=== PATIENT | male | born 1945 | race Two or more races ===

== ENCOUNTER 2020-11-22 11:31 | Inpatient (IN) | payer OTHER, MEDICAID ==
[~2020-11-22] VITALS: Ht 180.3 cm; Wt 73.4 kg
[2020-11-22 12:33] LABS: Hemoglobin 8.9 g/dL (13.5-17.5)
[2020-11-22 12:34] LABS: Hematocrit 26.7 % (41.0-53.0); Mean Corpuscular Hgb Conc. 33.3 g/dL (32.0-36.0); Mean Corpuscular Volume 93.1 fL (80.0-100.0); Red Blood Cells 2.87 10^6/uL (4.5-5.90); Red Cell Distribution Width 14.4 % (11.8-14.3); White Blood Cell 22.1 10^3/uL (4.4-10.8)
[2020-11-22 12:40] LABS: Basophils % (manual) 0 (0.0-2.0); Metamyelocytes % 0; Myelocytes % 0; Promyelocytes % 0
[2020-11-22 12:48] LABS: Calcium 7.4 mg/dL (8.5-10.1); INR 1.05 (0.9-1.15); Partial Thromboplastin Time 25.7 sec (23.0-31.2)
[2020-11-22 12:53] LABS: BUN/Creatinine Ratio 17.6; Bilirubin, Total 0.4 mg/dL (0.2-1.0); Total Protein 6.1 g/dL (6.4-8.2)
[2020-11-22 14:34] LABS: Band Neutrophils % (manual) 1; Eosinophils % (manual) 1 (0-7); Lymphocytes % (manual) 60 (10.0-50.0); Monocytes % (manual) 4 (0-12); Reactive Lymphocytes 12
[2020-11-22 14:35] LABS: Blast Cells 2
[2020-11-22] MEDS ORDERED: FUROSEMIDE 20 MG/2 ML VIAL IV ONE (14:45)
[2020-11-22] MEDS ORDERED: LACTULOSE 20Gm/30ML SOLN PO PRN (15:00)
[2020-11-22] MEDS ORDERED: DOXYCYCLINE 100MG/250ML 250 ML IV SCH (15:00)
[2020-11-22] MEDS ORDERED: NITROGLYCERIN 0.4 MG SL TAB SL PRN (15:00)
[2020-11-22] MEDS ORDERED: ALBUTEROL SULF 2.5 MG/0.5ML(0.5%) NEB SOLN NEB PRN (15:00)
[2020-11-22] MEDS ORDERED: MORPHINE SULFATE INJECTION 2 MG/ML SYRG IV PRN (15:00)
[2020-11-22] MEDS ORDERED: ALBUTEROL SULF 2.5 MG/0.5ML(0.5%) NEB SOLN NEB SCH (18:00)
[2020-11-22] MEDS ORDERED: IPRATROPIUM BROM 0.5 MG/2.5ML INH SOL NEB SCH (18:00)
[2020-11-22] MEDS ORDERED: DEXTROSE (50%) 50ML SYRG IV PRN (19:30)
[2020-11-22] MEDS ORDERED: INSULIN LISPRO (HUMAN) 100 UNITS/ML ML SC ONE (21:00)
[2020-11-22 22:00] VITALS: BP 140/72
[2020-11-22] MEDS ORDERED: ATORVASTATIN 20 MG TAB PO SCH (22:00)
[2020-11-22] MEDS: ATORVASTATIN 20 MG TAB PO SCH (22:08)
[2020-11-22] MEDS ORDERED: diphenhdrAMINE HCL 25 MG CAP PO ONE (22:15)
[2020-11-22 23:26] VITALS: BP 140/72
[2020-11-23 05:00] VITALS: BP 127/52
[2020-11-23] MEDS: InsuLIN REG 1unit/0.01ml Soln (100units/ml) SC SCH ×4 (06:00→18:17)
[2020-11-23] MEDS: ACCU-CHEK COMFORT CURVE STRIP VI SCH ×4 (06:00→18:17)
[2020-11-23 06:10] LABS: Urine Bacteria NONE SEEN /hpf (None Seen); Urine Blood Negative /uL (Negative); Urine Specific Gravity 1.008 (1.001-1.035); Urine WBC <1 /hpf (0 - 3)
[2020-11-23 08:00] VITALS: BP 153/81
[2020-11-23 08:29] LABS: Red Cell Distribution Width 14.6 % (11.8-14.3)
[2020-11-23] MEDS ORDERED: DIGOXIN (250MCG/ML) 2 ML AMPULE IV ONE (08:30)
[2020-11-23] MEDS ORDERED: METOPROLOL TARTRATE 1MG/1ML-5ML VIAL IV ONE (08:30)
[2020-11-23 08:31] LABS: Hemoglobin 9.8 g/dL (13.5-17.5); Mean Corpuscular Hemoglobin 30.9 pg (28.0-32.0); Mean Corpuscular Hgb Conc. 33.6 g/dL (32.0-36.0); Red Blood Cells 3.16 10^6/uL (4.5-5.90); White Blood Cell 20.3 10^3/uL (4.4-10.8)
[2020-11-23 08:46] LABS: Basophils % (manual) 0 (0.0-2.0); Blast Cells 0; Eosinophils % (manual) 0 (0-7); Metamyelocytes % 0; Myelocytes % 0; Promyelocytes % 0
[2020-11-23 08:48] LABS: % Iron Saturation 15.3 % (20-55)
[2020-11-23 08:54] LABS: BUN/Creatinine Ratio 16.7; Calcium 7.9 mg/dL (8.5-10.1); Potassium 3.3 mmol/L (3.5-5.1)
[2020-11-23 09:11] LABS: Red Cell Distribution Width 14.4 % (11.8-14.3)
[2020-11-23 09:13] LABS: Hematocrit 29.3 % (41.0-53.0); Hemoglobin 9.9 g/dL (13.5-17.5); Mean Corpuscular Hemoglobin 30.6 pg (28.0-32.0); Mean Corpuscular Hgb Conc. 33.7 g/dL (32.0-36.0); Red Blood Cells 3.22 10^6/uL (4.5-5.90); White Blood Cell 16.6 10^3/uL (4.4-10.8)
[2020-11-23 09:16] LABS: Band Neutrophils % (manual) 0; Basophils % (manual) 0 (0.0-2.0); Blast Cells 0; Metamyelocytes % 0; Myelocytes % 0; Promyelocytes % 0; Reactive Lymphocytes 0
[2020-11-23] MEDS ORDERED: POTASSIUM CHL 20 Meq TABLET PO ONE ×3 (09:30→20:00)
[2020-11-23] MEDS ORDERED: EPOETIN ALFA 10000 UNIT/1 ML SC ONE (09:30)
[2020-11-23] MEDS ORDERED: POTASSIUM CHL 20 Meq TABLET PO SCH (10:00)
[2020-11-23] MEDS ORDERED: FUROSEMIDE 40 MG/4 ML VIAL IV SCH (10:00)
[2020-11-23] MEDS ORDERED: ASPirin 81 mg TAB PO SCH (10:00)
[2020-11-23] MEDS ORDERED: NITROGLYCERIN 0.2MG/HR TOPICAL PATCH TD SCH (10:00)
[2020-11-23] MEDS ORDERED: METOPROLOL TARTRATE 25 MG TAB PO ONE (10:30)
[2020-11-23] MEDS: FUROSEMIDE 40 MG/4 ML VIAL IV SCH (11:22)
[2020-11-23] MEDS: ISOSORBIDE MONONITRATE ER 60 MG TAB PO SCH (11:22)
[2020-11-23] MEDS: ASPirin 81 mg TAB PO SCH (11:22)
[2020-11-23] MEDS: ENALAPRIL MALEATE 2.5 MG TAB PO SCH (11:23)
[2020-11-23] MEDS: SODIUM FERR GLUC 62.5MG/5ML 125 MG in SODIUM CHL 0.9% 100 ML IV SCH (12:00)
[2020-11-23 12:42] LABS: Band Neutrophils % (manual) 2; Lymphocytes % (manual) 76 (10.0-50.0); Monocytes % (manual) 5 (0-12); Reactive Lymphocytes 5
[2020-11-23 13:43] LABS: Lymphocytes % (manual) 84 (10.0-50.0)
[2020-11-23 13:44] LABS: Eosinophils % (manual) 2 (0-7); Monocytes % (manual) 2 (0-12)
[2020-11-23] MEDS: Glucerna Carbsteady SHAKE Vanilla 8oz PO SCH (18:17)
[2020-11-23] MEDS: TAMSULOSIN HYDROCHLORIDE 0.4 MG CAP PO SCH (18:17)
[2020-11-23] MEDS: TEMAZEPAM 15 MG CAP PO PRN (21:36)
[2020-11-23] MEDS: ATORVASTATIN 20 MG TAB PO SCH (21:37)
[2020-11-23] MEDS: METOPROLOL TARTRATE 25 MG TAB PO SCH (21:37)
[2020-11-23 22:25] VITALS: BP 158/56
[2020-11-24] MEDS: InsuLIN REG 1unit/0.01ml Soln (100units/ml) SC SCH ×5 (00:14→23:32)
[2020-11-24] MEDS: ACCU-CHEK COMFORT CURVE STRIP VI SCH ×5 (00:17→23:32)
[2020-11-24] MEDS: Glucerna Carbsteady SHAKE Vanilla 8oz PO SCH ×3 (08:00→17:45)
[2020-11-24 09:00] VITALS: BP 151/70
[2020-11-24 09:26] LABS: Mean Corpuscular Hemoglobin 30.4 pg (28.0-32.0)
[2020-11-24 09:28] LABS: Hematocrit 30.3 % (41.0-53.0); Mean Corpuscular Hgb Conc. 33.1 g/dL (32.0-36.0); Mean Corpuscular Volume 91.8 fL (80.0-100.0); Red Blood Cells 3.31 10^6/uL (4.5-5.90); Red Cell Distribution Width 14.1 % (11.8-14.3); White Blood Cell 27.1 10^3/uL (4.4-10.8)
[2020-11-24 09:33] LABS: Basophils % (manual) 0 (0.0-2.0); Blast Cells 0; Eosinophils % (manual) 0 (0-7); Metamyelocytes % 0; Myelocytes % 0; Promyelocytes % 0
[2020-11-24 09:52] VITALS: BP 156/76
[2020-11-24 09:56] LABS: BUN/Creatinine Ratio 15.2; Calcium 8.2 mg/dL (8.5-10.1); Magnesium 2.3 mg/dL (1.6-2.6); Potassium 4.1 mmol/L (3.5-5.1)
[2020-11-24 10:15] VITALS: BP 159/72
[2020-11-24] MEDS ORDERED: IODIXANOL 320MG/ML 100ML BTL IV ONE (10:32)
[2020-11-24] MEDS ORDERED: LIDOCAINE 2%HCL (LOCAL ANESTH.) INJ 20ML MDV ONE (10:32)
[2020-11-24] MEDS ORDERED: ANGIOMAX 250 MG VIAL IV ONE (10:51)
[2020-11-24] MEDS ORDERED: fentaNYL CITRATE 100 MCG/2 ML VL ONE (10:51)
[2020-11-24] MEDS ORDERED: SODIUM CHL 0.9% 0 ML ONE (10:51)
[2020-11-24] MEDS ORDERED: MIDAZOLAM HCL 2MG/2ML 2ml VIAL (1mg/ml) ONE (10:51)
[2020-11-24] MEDS ORDERED: HEPARIN SODIUM (PORCINE) 5000 UNITS/ML 1ML VIAL ONE (10:52)
[2020-11-24] MEDS ORDERED: VERAPAMIL 2.5MG/ML INJ 2ML VIAL IV ONE (10:52)
[2020-11-24] MEDS ORDERED: NITROGLYCERIN 5MG/ML 10ML VIAL IV ONE (10:58)
[2020-11-24] MEDS ORDERED: NITROGLYCERIN 0.4MG/DOSE SPRAY 4.9GM ONE (11:32)
[2020-11-24] MEDS ORDERED: traMADol HCL 50 MG TAB PO PRN (12:00)
[2020-11-24] MEDS ORDERED: DexAMETHasone SOD PHOS 4 MG/1ML SDV INJ IV SCH (13:00)
[2020-11-24 13:04] LABS: Band Neutrophils % (manual) 1; Lymphocytes % (manual) 71 (10.0-50.0); Monocytes % (manual) 3 (0-12); Reactive Lymphocytes 8
[2020-11-24] MEDS: ASPirin 81 mg TAB PO SCH (13:05)
[2020-11-24] MEDS: FUROSEMIDE 40 MG/4 ML VIAL IV SCH (13:05)
[2020-11-24] MEDS: ENALAPRIL MALEATE 2.5 MG TAB PO SCH (13:05)
[2020-11-24] MEDS: ISOSORBIDE MONONITRATE ER 60 MG TAB PO SCH (13:05)
[2020-11-24] MEDS: POTASSIUM CHL 20 Meq TABLET PO SCH (13:06)
[2020-11-24] MEDS: METOPROLOL TARTRATE 25 MG TAB PO SCH ×2 (13:06→21:54)
[2020-11-24] MEDS: SODIUM FERR GLUC 62.5MG/5ML 125 MG in SODIUM CHL 0.9% 100 ML IV SCH (15:06)
[2020-11-24] MEDS: ACETAMINOPHEN 325 MG TAB PO SCH (15:27)
[2020-11-24] MEDS: diphenhdrAMINE HCL 50 MG/1 ML VL IV SCH (15:27)
[2020-11-24 16:00] VITALS: BP 140/68
[2020-11-24] MEDS: IV IMMUNE GLOBULIN(IVIG) 10% 20G/200ML IV SCH (16:28)
[2020-11-24] MEDS: TAMSULOSIN HYDROCHLORIDE 0.4 MG CAP PO SCH (17:46)
[2020-11-24] MEDS: ATORVASTATIN 20 MG TAB PO SCH (21:53)
[2020-11-24] MEDS: TEMAZEPAM 15 MG CAP PO PRN (21:54)
[2020-11-24 22:00] VITALS: BP 130/62
[2020-11-25] MEDS: ACCU-CHEK COMFORT CURVE STRIP VI SCH ×4 (06:13→23:26)
[2020-11-25] MEDS: InsuLIN REG 1unit/0.01ml Soln (100units/ml) SC SCH ×4 (06:15→23:25)
[2020-11-25 07:36] LABS: Red Cell Distribution Width 13.9 % (11.8-14.3)
[2020-11-25 07:38] LABS: Hematocrit 30.7 % (41.0-53.0); Hemoglobin 10.2 g/dL (13.5-17.5); Mean Corpuscular Hemoglobin 30.9 pg (28.0-32.0); Mean Corpuscular Hgb Conc. 33.4 g/dL (32.0-36.0); Mean Corpuscular Volume 92.6 fL (80.0-100.0); Red Blood Cells 3.31 10^6/uL (4.5-5.90)
[2020-11-25] MEDS: Glucerna Carbsteady SHAKE Vanilla 8oz PO SCH ×3 (07:41→18:08)
[2020-11-25 07:54] LABS: Potassium 4.1 mmol/L (3.5-5.1)
[2020-11-25 07:56] LABS: Basophils % (manual) 0 (0.0-2.0); Blast Cells 0; Eosinophils % (manual) 0 (0-7); Metamyelocytes % 0; Myelocytes % 0; Promyelocytes % 0
[2020-11-25 07:57] LABS: BUN/Creatinine Ratio 16.4
[2020-11-25 08:00] VITALS: BP 154/72
[2020-11-25 08:09] LABS: Immunoglobulin G, Serum 976 mg/dL (603-1613)
[2020-11-25 08:32] VITALS: BP 154/72
[2020-11-25] MEDS: FUROSEMIDE 40 MG/4 ML VIAL IV SCH (09:45)
[2020-11-25] MEDS: ENALAPRIL MALEATE 2.5 MG TAB PO SCH (09:47)
[2020-11-25] MEDS: DAPAGLIFLOZIN 5 MG TAB PO SCH (09:48)
[2020-11-25] MEDS: ASPirin 81 mg TAB PO SCH (09:49)
[2020-11-25] MEDS: METOPROLOL TARTRATE 25 MG TAB PO SCH ×2 (09:51→20:50)
[2020-11-25] MEDS: ISOSORBIDE MONONITRATE ER 60 MG TAB PO SCH (09:52)
[2020-11-25] MEDS: POTASSIUM CHL 20 Meq TABLET PO SCH (09:54)
[2020-11-25 10:36] LABS: Band Neutrophils % (manual) 1; Lymphocytes % (manual) 77 (10.0-50.0); Monocytes % (manual) 2 (0-12); Reactive Lymphocytes 10
[2020-11-25] MEDS: SODIUM FERR GLUC 62.5MG/5ML 125 MG in SODIUM CHL 0.9% 100 ML IV SCH (12:52)
[2020-11-25] MEDS: diphenhdrAMINE HCL 50 MG/1 ML VL IV SCH (15:06)
[2020-11-25] MEDS: ACETAMINOPHEN 325 MG TAB PO SCH (15:06)
[2020-11-25 16:14] VITALS: BP 130/60
[2020-11-25] MEDS: IV IMMUNE GLOBULIN(IVIG) 10% 20G/200ML IV SCH (16:14)
[2020-11-25] MEDS: TAMSULOSIN HYDROCHLORIDE 0.4 MG CAP PO SCH (18:09)
[2020-11-25 20:00] VITALS: BP 158/70
[2020-11-25] MEDS: ATORVASTATIN 20 MG TAB PO SCH (20:49)
[2020-11-25] MEDS: TEMAZEPAM 15 MG CAP PO PRN (20:52)
[2020-11-25] MEDS: INSULIN LANTUS (GLARGINE) 1 /0.01ml (100units/ml) SC SCH (21:07)
[2020-11-26 00:06] VITALS: BP 158/70
[2020-11-26 05:30] VITALS: BP 150/73
[2020-11-26] MEDS: InsuLIN REG 1unit/0.01ml Soln (100units/ml) SC SCH ×4 (06:00→23:42)
[2020-11-26] MEDS: ACCU-CHEK COMFORT CURVE STRIP VI SCH ×4 (06:26→23:41)
[2020-11-26 08:00] VITALS: BP 161/70
[2020-11-26 08:04] LABS: Hematocrit 28.6 % (41.0-53.0); Hemoglobin 9.6 g/dL (13.5-17.5); Mean Corpuscular Hgb Conc. 33.7 g/dL (32.0-36.0); Mean Corpuscular Volume 91.9 fL (80.0-100.0); Red Blood Cells 3.11 10^6/uL (4.5-5.90); Red Cell Distribution Width 14.6 % (11.8-14.3)
[2020-11-26 08:22] LABS: White Blood Cell 34.1 10^3/uL (4.4-10.8)
[2020-11-26 08:23] LABS: Basophils % (manual) 0 (0.0-2.0); Blast Cells 0; Metamyelocytes % 0; Myelocytes % 0; Promyelocytes % 0
[2020-11-26 08:24] LABS: BUN/Creatinine Ratio 19.1; Calcium 8.1 mg/dL (8.5-10.1)
[2020-11-26] MEDS ORDERED: ASPirin 81 mg TAB PO ONE (09:30)
[2020-11-26] MEDS ORDERED: HEPARIN 1,000 UNITS/ml 1ML VIAL IV ONE (09:30)
[2020-11-26] MEDS: Glucerna Carbsteady SHAKE Vanilla 8oz PO SCH ×3 (09:53→19:29)
[2020-11-26] MEDS: ASPirin 81 mg TAB PO SCH (09:53)
[2020-11-26] MEDS: METOPROLOL TARTRATE 25 MG TAB PO SCH ×2 (09:54→20:08)
[2020-11-26] MEDS: ISOSORBIDE MONONITRATE ER 60 MG TAB PO SCH (09:54)
[2020-11-26] MEDS: DAPAGLIFLOZIN 5 MG TAB PO SCH (09:54)
[2020-11-26] MEDS: ENALAPRIL MALEATE 2.5 MG TAB PO SCH (09:55)
[2020-11-26] MEDS ORDERED: FUROSEMIDE 20 MG/2 ML VIAL IV ONE ×2 (10:15→13:45)
[2020-11-26 11:06] LABS: Band Neutrophils % (manual) 1; Eosinophils % (manual) 1 (0-7); Lymphocytes % (manual) 83 (10.0-50.0); Monocytes % (manual) 2 (0-12); Reactive Lymphocytes 10
[2020-11-26] MEDS: SODIUM FERR GLUC 62.5MG/5ML 125 MG in SODIUM CHL 0.9% 100 ML IV SCH (12:11)
[2020-11-26 16:00] VITALS: BP 144/57
[2020-11-26] MEDS: TAMSULOSIN HYDROCHLORIDE 0.4 MG CAP PO SCH (18:08)
[2020-11-26 20:00] VITALS: BP 148/65
[2020-11-26] MEDS: TEMAZEPAM 15 MG CAP PO PRN (20:00)
[2020-11-26] MEDS: ATORVASTATIN 20 MG TAB PO SCH (20:07)
[2020-11-26] MEDS: INSULIN LANTUS (GLARGINE) 1 /0.01ml (100units/ml) SC SCH (20:08)
[2020-11-26 22:00] VITALS: BP 148/55
[2020-11-27] MEDS: InsuLIN REG 1unit/0.01ml Soln (100units/ml) SC SCH ×2 (06:00→12:00)
[2020-11-27] MEDS: ACCU-CHEK COMFORT CURVE STRIP VI SCH ×2 (06:00→12:00)
[2020-11-27 08:00] VITALS: BP 158/65
[2020-11-27] MEDS: Glucerna Carbsteady SHAKE Vanilla 8oz PO SCH ×2 (08:00→12:00)
[2020-11-27 08:39] LABS: Hematocrit 29.6 % (41.0-53.0); Mean Corpuscular Hemoglobin 30.8 pg (28.0-32.0); Mean Corpuscular Hgb Conc. 33.6 g/dL (32.0-36.0); Mean Corpuscular Volume 91.8 fL (80.0-100.0); Red Blood Cells 3.23 10^6/uL (4.5-5.90); Red Cell Distribution Width 14.2 % (11.8-14.3)
[2020-11-27 08:48] LABS: Band Neutrophils % (manual) 0; Basophils % (manual) 0 (0.0-2.0); Blast Cells 0; Metamyelocytes % 0; Myelocytes % 0; Promyelocytes % 0; Reactive Lymphocytes 0; White Blood Cell 32.4 10^3/uL (4.4-10.8)
[2020-11-27 09:05] LABS: Eosinophils % (manual) 1 (0-7); Lymphocytes % (manual) 85 (10.0-50.0); Monocytes % (manual) 1 (0-12)
[2020-11-27 09:11] LABS: BUN/Creatinine Ratio 17.1; Potassium 4.3 mmol/L (3.5-5.1)
[2020-11-27] MEDS: ISOSORBIDE MONONITRATE ER 60 MG TAB PO SCH (10:00)
[2020-11-27] MEDS: DAPAGLIFLOZIN 5 MG TAB PO SCH (10:00)
[2020-11-27] MEDS: ASPirin 81 mg TAB PO SCH (10:00)
[2020-11-27] MEDS ORDERED: METOPROLOL TARTRATE 25 MG TAB PO SCH (10:00)
[2020-11-27] MEDS ORDERED: FUROSEMIDE 20 MG/2 ML VIAL IV ONE (10:00)
[2020-11-27] MEDS ORDERED: FERROUS SULFATE 325mg EC TAB PO SCH (10:06)
[2020-11-27 14:06] VITALS: BP 158/65
[2020-11-27 14:13] VITALS: BP 158/65
[2020-11-27 16:00] VITALS: BP 141/64
== END 2020-11-27 16:40 | disposition home or self-care (01) | DRG 286 ==
LOC: ER 11:31 → TELE 11:32 → TELE-CENTR 20:07
PROVIDERS: ADMIT Internal Medicine; ATTEND Internal Medicine
PROC: B211YZZ Fluoroscopy of Multiple Coronary Arteries using Other Contrast (ICD-10-PCS; principal; 2020-11-24)
PROC: B215YZZ Fluoroscopy of Left Heart using Other Contrast (ICD-10-PCS; 2020-11-24)
PROC: B21FYZZ Fluoroscopy of Other Bypass Graft using Other Contrast (ICD-10-PCS; 2020-11-24)
PROC: B218YZZ Fluoroscopy of Left Internal Mammary Bypass Graft using Other Contrast (ICD-10-PCS; 2020-11-24)
PROC: 30233R1 Transfusion of Nonautologous Platelets into Peripheral Vein, Percutaneous Approach (ICD-10-PCS; 2020-11-24)
DX: I13.0 Hypertensive heart and chronic kidney disease with heart failure and stage 1 through stage 4 chronic kidney disease, or unspecified chronic kidney disease (principal); I50.23 Acute on chronic systolic (congestive) heart failure; J96.00 Acute respiratory failure, unspecified whether with hypoxia or hypercapnia; C91.10 Chronic lymphocytic leukemia of B-cell type not having achieved remission; Z20.822 Contact with and (suspected) exposure to COVID-19; N18.32 Chronic kidney disease, stage 3b; I25.110 Atherosclerotic heart disease of native coronary artery with unstable angina pectoris; D69.59 Other secondary thrombocytopenia; E11.65 Type 2 diabetes mellitus with hyperglycemia; E11.21 Type 2 diabetes mellitus with diabetic nephropathy; I45.9 Conduction disorder, unspecified; I48.91 Unspecified atrial fibrillation; E78.5 Hyperlipidemia, unspecified; D63.8 Anemia in other chronic diseases classified elsewhere; N40.0 Benign prostatic hyperplasia without lower urinary tract symptoms; E11.22 Type 2 diabetes mellitus with diabetic chronic kidney disease; Z79.4 Long term (current) use of insulin; Z95.1 Presence of aortocoronary bypass graft; Z95.5 Presence of coronary angioplasty implant and graft
CPT/HCPCS: 36415; 71045; 71046; 71250; 80048; 80053; 81001; 82550; 82784; 82962; 83010; 83036; 83540; 83550; 83615; 83735; 83880; 84155; 84165; 84443; 84484; 85007; 85027; 85045; 85060; 85379; 85610; 85652; 85730; 86141; 86334; 86850; 86880; 86900; 86901; 87426; 93005; 93306; 93459; 94640; 96374; 99152; 99153; G0378; J0885; J1100; J1561; J1815; J2250; J3490; Q9967

== ENCOUNTER → 2020-12-09 | Outpatient (CLI) | payer OTHER ==
[2020-12-09 10:09] LABS: Urine Bacteria NONE SEEN /hpf (None Seen); Urine Blood Negative /uL (Negative); Urine Specific Gravity 1.011 (1.001-1.035); Urine WBC 1 /hpf (0 - 3)
[2020-12-09 10:14] LABS: Hematocrit 32.1 % (41.0-53.0); Hemoglobin 10.7 g/dL (13.5-17.5); Mean Corpuscular Hemoglobin 30.9 pg (28.0-32.0); Mean Corpuscular Hgb Conc. 33.4 g/dL (32.0-36.0); Mean Corpuscular Volume 92.7 fL (80.0-100.0); Platelet Count (auto) 36 10^3/uL (140-450); Red Blood Cells 3.47 10^6/uL (4.5-5.90); Red Cell Distribution Width 14.8 % (11.8-14.3); White Blood Cell 21.7 10^3/uL (4.4-10.8)
[2020-12-09 10:17] LABS: Potassium 4.3 mmol/L (3.5-5.1)
[2020-12-09 10:19] LABS: Band Neutrophils % (manual) 0; Basophils % (manual) 0 (0.0-2.0); Blast Cells 0; Eosinophils % (manual) 0 (0-7); Metamyelocytes % 0; Monocytes % (manual) 0 (0-12); Myelocytes % 0; Promyelocytes % 0; Reactive Lymphocytes 0
[2020-12-09 10:25] LABS: Albumin 3.1 g/dL (3.4-5.0); BUN/Creatinine Ratio 20.4; Bilirubin, Total 0.3 mg/dL (0.2-1.0); Total Protein 7.5 g/dL (6.4-8.2)
[2020-12-09 11:18] LABS: Lymphocytes % (manual) 87 (10.0-50.0)
[2020-12-10 04:56] LABS: Protein, Urine 50.7 mg/dL (0.0-11.9)
== END | disposition home or self-care (01) ==
LOC: LAB 09:21
PROVIDERS: ATTEND Internal Medicine
DX: E11.22 Type 2 diabetes mellitus with diabetic chronic kidney disease (principal); I13.0 Hypertensive heart and chronic kidney disease with heart failure and stage 1 through stage 4 chronic kidney disease, or unspecified chronic kidney disease; N18.32 Chronic kidney disease, stage 3b; I50.23 Acute on chronic systolic (congestive) heart failure
CPT/HCPCS: 80053; 81001; 82043; 82570; 83880; 84156; 84300

== ENCOUNTER → 2020-12-24 | Outpatient (CLI) | payer MEDICARE, OTHER ==
[2020-12-24 14:54] LABS: BUN/Creatinine Ratio 15.9; Calcium 7.9 mg/dL (8.5-10.1); Potassium 4.8 mmol/L (3.5-5.1)
[2020-12-25 10:19] LABS: Hemoglobin 10.7 g/dL (13.5-17.5)
[2020-12-25 10:20] LABS: Hematocrit 32.8 % (41.0-53.0); Mean Corpuscular Hemoglobin 31.2 pg (28.0-32.0); Mean Corpuscular Hgb Conc. 32.6 g/dL (32.0-36.0); Mean Corpuscular Volume 95.7 fL (80.0-100.0); Platelet Count (auto) 56 10^3/uL (140-450); Red Blood Cells 3.43 10^6/uL (4.5-5.90); White Blood Cell 18.6 10^3/uL (4.4-10.8)
[2020-12-25 10:59] LABS: Band Neutrophils % (manual) 0; Basophils % (manual) 0 (0.0-2.0); Blast Cells 0; Eosinophils % (manual) 0 (0-7); Metamyelocytes % 0; Myelocytes % 0; Promyelocytes % 0; Reactive Lymphocytes 0
[2020-12-25 11:00] LABS: Lymphocytes % (manual) 84 (10.0-50.0); Monocytes % (manual) 10 (0-12)
== END | disposition home or self-care (01) ==
LOC: LAB 13:54
PROVIDERS: ATTEND Internal Medicine Nephrology
DX: N18.30 Chronic kidney disease, stage 3 unspecified (principal)
CPT/HCPCS: 36415; 80048; 83880; 85007; 85027

== ENCOUNTER → 2021-01-19 | Outpatient (CLI) | payer MEDICARE, OTHER ==
[2021-01-19 07:57] LABS: Band Neutrophils % (manual) 0; Basophils % (manual) 0 (0.0-2.0); Blast Cells 0; Metamyelocytes % 0; Myelocytes % 0; Promyelocytes % 0; Reactive Lymphocytes 0
[2021-01-19 08:01] LABS: Hemoglobin 11.6 g/dL (13.5-17.5); Platelet Count (auto) 39 10^3/uL (140-450)
[2021-01-19 08:03] LABS: Hematocrit 35.3 % (41.0-53.0); Mean Corpuscular Hemoglobin 30.9 pg (28.0-32.0); Mean Corpuscular Hgb Conc. 32.9 g/dL (32.0-36.0); Mean Corpuscular Volume 93.9 fL (80.0-100.0); Red Blood Cells 3.76 10^6/uL (4.5-5.90); Red Cell Distribution Width 14.8 % (11.8-14.3); White Blood Cell 25.1 10^3/uL (4.4-10.8)
[2021-01-19 08:28] LABS: BUN/Creatinine Ratio 17.9; Calcium 8.1 mg/dL (8.5-10.1)
[2021-01-19 09:14] LABS: Eosinophils % (manual) 1 (0-7); Lymphocytes % (manual) 83 (10.0-50.0); Monocytes % (manual) 6 (0-12)
[2021-01-19 11:44] LABS: % Iron Saturation 27.1 % (20-55)
== END | disposition home or self-care (01) ==
LOC: LAB 07:50
PROVIDERS: ATTEND Internal Medicine
DX: I12.9 Hypertensive chronic kidney disease with stage 1 through stage 4 chronic kidney disease, or unspecified chronic kidney disease (principal); N18.9 Chronic kidney disease, unspecified; E11.22 Type 2 diabetes mellitus with diabetic chronic kidney disease; D50.9 Iron deficiency anemia, unspecified
CPT/HCPCS: 36415; 80048; 83540; 83550; 85007; 85027

== ENCOUNTER → 2021-01-29 | Outpatient (CLI) | payer MEDICARE, OTHER ==
[2021-01-29 11:04] LABS: Mean Corpuscular Hgb Conc. 32.9 g/dL (32.0-36.0)
[2021-01-29 11:11] LABS: Hematocrit 37.3 % (41.0-53.0); Hemoglobin 12.3 g/dL (13.5-17.5); Mean Corpuscular Hemoglobin 30.7 pg (28.0-32.0); Mean Corpuscular Volume 93.4 fL (80.0-100.0); Platelet Count (auto) 40 10^3/uL (140-450); Red Cell Distribution Width 14.6 % (11.8-14.3); White Blood Cell 24.4 10^3/uL (4.4-10.8)
[2021-01-29 11:38] LABS: BUN/Creatinine Ratio 14.1; Calcium 8.4 mg/dL (8.5-10.1); Potassium 4.6 mmol/L (3.5-5.1)
[2021-01-29 13:44] LABS: Band Neutrophils % (manual) 0; Basophils % (manual) 0 (0.0-2.0); Blast Cells 0; Eosinophils % (manual) 0 (0-7); Metamyelocytes % 0; Myelocytes % 0; Promyelocytes % 0
[2021-01-29 13:46] LABS: Lymphocytes % (manual) 85 (10.0-50.0); Monocytes % (manual) 1 (0-12); Reactive Lymphocytes 3
== END | disposition home or self-care (01) ==
LOC: LAB 10:26
PROVIDERS: ATTEND Internal Medicine
DX: I12.9 Hypertensive chronic kidney disease with stage 1 through stage 4 chronic kidney disease, or unspecified chronic kidney disease (principal); E11.22 Type 2 diabetes mellitus with diabetic chronic kidney disease; N18.30 Chronic kidney disease, stage 3 unspecified
CPT/HCPCS: 36415; 80048; 83036; 85007; 85027

== ENCOUNTER → 2021-02-26 | Outpatient (CLI) | payer MEDICARE, MEDICAID ==
[2021-02-26 12:14] LABS: Mean Corpuscular Hgb Conc. 32.8 g/dL (32.0-36.0); Red Blood Cells 4.01 10^6/uL (4.5-5.90)
[2021-02-26 12:16] LABS: Hemoglobin 12.5 g/dL (13.5-17.5); Mean Corpuscular Volume 94.7 fL (80.0-100.0); Platelet Count (auto) 45 10^3/uL (140-450); Red Cell Distribution Width 14.4 % (11.8-14.3); White Blood Cell 19.7 10^3/uL (4.4-10.8)
[2021-02-26 12:17] LABS: Band Neutrophils % (manual) 0; Basophils % (manual) 0 (0.0-2.0); Eosinophils % (manual) 0 (0-7); Metamyelocytes % 0; Myelocytes % 0; Promyelocytes % 0
[2021-02-26 12:58] LABS: Calcium 8.7 mg/dL (8.5-10.1); Potassium 4.5 mmol/L (3.5-5.1)
[2021-02-26 13:02] LABS: BUN/Creatinine Ratio 14.7; Bilirubin, Total 0.5 mg/dL (0.2-1.0); Total Protein 7.7 g/dL (6.4-8.2)
[2021-02-26 13:07] LABS: % Iron Saturation 22.8 % (20-55)
[2021-02-26 15:05] LABS: Blast Cells 2; Lymphocytes % (manual) 25 (10.0-50.0); Monocytes % (manual) 1 (0-12)
[2021-02-26 15:07] LABS: Reactive Lymphocytes 59
== END | disposition home or self-care (01) ==
LOC: LAB 11:17
PROVIDERS: ATTEND Internal Medicine Nephrology
DX: E11.22 Type 2 diabetes mellitus with diabetic chronic kidney disease (principal); N18.30 Chronic kidney disease, stage 3 unspecified; D63.1 Anemia in chronic kidney disease
CPT/HCPCS: 36415; 80053; 83540; 83550; 85007; 85027

== ENCOUNTER → 2021-03-25 | Outpatient (CLI) | payer MEDICARE, MEDICAID ==
[2021-03-25 12:14] LABS: Hematocrit 33.2 % (41.0-53.0); Hemoglobin 11.2 g/dL (13.5-17.5); Mean Corpuscular Hemoglobin 32.2 pg (28.0-32.0); Mean Corpuscular Hgb Conc. 33.8 g/dL (32.0-36.0); Mean Corpuscular Volume 95.1 fL (80.0-100.0); Platelet Count (auto) 39 10^3/uL (140-450); Red Blood Cells 3.49 10^6/uL (4.5-5.90); Red Cell Distribution Width 13.9 % (11.8-14.3); White Blood Cell 22.5 10^3/uL (4.4-10.8)
[2021-03-25 12:19] LABS: Band Neutrophils % (manual) 0; Basophils % (manual) 0 (0.0-2.0); Blast Cells 0; Eosinophils % (manual) 0 (0-7); Metamyelocytes % 0; Myelocytes % 0; Promyelocytes % 0; Reactive Lymphocytes 0
[2021-03-25 12:40] LABS: Lymphocytes % (manual) 78 (10.0-50.0); Monocytes % (manual) 3 (0-12)
[2021-03-25 12:49] LABS: Albumin 3.3 g/dL (3.4-5.0); Calcium 7.9 mg/dL (8.5-10.1); Potassium 5.1 mmol/L (3.5-5.1)
[2021-03-25 12:54] LABS: BUN/Creatinine Ratio 15.1; Bilirubin, Total 0.4 mg/dL (0.2-1.0); Total Protein 6.6 g/dL (6.4-8.2)
[2021-03-25 14:45] LABS: % Iron Saturation 23.9 % (20-55)
== END | disposition home or self-care (01) ==
LOC: LAB 11:47
PROVIDERS: ATTEND Internal Medicine Nephrology
DX: E11.22 Type 2 diabetes mellitus with diabetic chronic kidney disease (principal); I10 Essential (primary) hypertension
CPT/HCPCS: 36415; 80053; 83036; 83540; 83550; 85007; 85027

== ENCOUNTER → 2021-05-25 | Outpatient (CLI) | payer MEDICARE, MEDICAID ==
[2021-05-25 13:39] LABS: Basophils # (auto) 0 10 ^3/uL (0-0.2); Eosinophils # (auto) 0 10 ^3/uL (0-0.8); Hematocrit 34.5 % (41.0-53.0); Hemoglobin 11.5 g/dL (13.5-17.5); Lymphocytes # (auto) 0.7 10 ^3/uL (0.4-5.4); Lymphocytes % (auto) 24.3 % (10.0-50.0); Mean Corpuscular Hgb Conc. 33.2 g/dL (32.0-36.0); Monocytes # (auto) 0.4 10 ^3/uL (0-1.3); Nucleated Red Blood Cells % 0.1 %; White Blood Cell 2.7 10^3/uL (4.4-10.8)
[2021-05-25 13:40] LABS: Basophils % (auto) 0.8 % (0.0-2.0); Eosinophils % (auto) 0.6 % (0.0-7.0); Mean Corpuscular Hemoglobin 30.7 pg (28.0-32.0); Mean Corpuscular Volume 92.4 fL (80.0-100.0); Monocytes % (auto) 13.6 % (0.0-12.0); Neutrophils # (auto) 1.7 10 ^3/uL (1.6-8.6); Neutrophils % (auto) 60.7 % (37.0-80.0); Red Blood Cells 3.74 10^6/uL (4.5-5.90); Red Cell Distribution Width 13.3 % (11.8-14.3)
[2021-05-25 14:12] LABS: Potassium 4.6 mmol/L (3.5-5.1)
[2021-05-25 14:28] LABS: Albumin 3.6 g/dL (3.4-5.0); BUN/Creatinine Ratio 16.3; Bilirubin, Total 0.3 mg/dL (0.2-1.0); Calcium 8.8 mg/dL (8.5-10.1); Total Protein 7.2 g/dL (6.4-8.2)
== END | disposition home or self-care (01) ==
LOC: LAB 13:13
PROVIDERS: ATTEND Internal Medicine
DX: E11.22 Type 2 diabetes mellitus with diabetic chronic kidney disease (principal); N18.30 Chronic kidney disease, stage 3 unspecified
CPT/HCPCS: 36415; 80053; 83036; 85025

== ENCOUNTER → 2021-07-23 | Outpatient (CLI) | payer MEDICARE, MEDICAID ==
[2021-07-23 11:32] LABS: Urine WBC None Seen /hpf (0 - 3)
[2021-07-23 12:11] LABS: Urine Bacteria FEW /hpf (None Seen); Urine Blood Negative /uL (Negative); Urine Specific Gravity 1.007 (1.001-1.035)
[2021-07-23 12:14] LABS: Potassium 4.8 mmol/L (3.5-5.1)
[2021-07-23 12:16] LABS: BUN/Creatinine Ratio 14.5; Calcium 8.5 mg/dL (8.5-10.1)
[2021-07-23 12:43] LABS: Hematocrit 38.9 % (41.0-53.0); Hemoglobin 12.7 g/dL (13.5-17.5); Mean Corpuscular Hemoglobin 29.6 pg (28.0-32.0); Mean Corpuscular Hgb Conc. 32.7 g/dL (32.0-36.0); Mean Corpuscular Volume 90.6 fL (80.0-100.0); Red Cell Distribution Width 12.8 % (11.8-14.3); White Blood Cell 4.5 10^3/uL (4.4-10.8)
[2021-07-23 12:44] LABS: Basophils % (manual) 0 (0.0-2.0); Blast Cells 0; Metamyelocytes % 0; Myelocytes % 0; Promyelocytes % 0; Reactive Lymphocytes 0
[2021-07-23 13:26] LABS: Band Neutrophils % (manual) 1; Eosinophils % (manual) 1 (0-7); Lymphocytes % (manual) 12 (10.0-50.0); Monocytes % (manual) 5 (0-12)
== END | disposition home or self-care (01) ==
LOC: LAB 11:06
PROVIDERS: ATTEND Internal Medicine
DX: E11.22 Type 2 diabetes mellitus with diabetic chronic kidney disease (principal); N18.30 Chronic kidney disease, stage 3 unspecified
CPT/HCPCS: 36415; 80048; 81001; 82043; 83036; 85007; 85027

== ENCOUNTER → 2022-07-06 | Outpatient (CLI) | payer MEDICARE, MEDICAID ==
[2022-07-06 10:52] LABS: Urine Bacteria NONE SEEN /hpf (None Seen); Urine Blood Negative /uL (Negative); Urine Specific Gravity 1.013 (1.001-1.035); Urine WBC None Seen /hpf (0 - 3)
[2022-07-06 11:12] LABS: Albumin 3.1 g/dL (3.4-5.0); Calcium 8.6 mg/dL (8.5-10.1); Potassium 4.6 mmol/L (3.5-5.1)
[2022-07-06 11:15] LABS: % Iron Saturation 18.9 % (20-55)
[2022-07-06 11:16] LABS: BUN/Creatinine Ratio 15.7; Bilirubin, Total 0.3 mg/dL (0.2-1.0); Total Protein 6.6 g/dL (6.4-8.2)
[2022-07-06 13:54] LABS: Hematocrit 40.6 % (41.0-53.0); Hemoglobin 12.9 g/dL (13.5-17.5); Mean Corpuscular Hemoglobin 27.5 pg (28.0-32.0); Mean Corpuscular Hgb Conc. 31.8 g/dL (32.0-36.0); Mean Corpuscular Volume 86.3 fL (80.0-100.0); Red Cell Distribution Width 14.9 % (11.8-14.3); White Blood Cell 4.2 10^3/uL (4.4-10.8)
[2022-07-06 13:59] LABS: Basophils % (manual) 0 (0.0-2.0); Blast Cells 0; Metamyelocytes % 0; Myelocytes % 0; Promyelocytes % 0; Reactive Lymphocytes 0
[2022-07-06 16:09] LABS: Band Neutrophils % (manual) 2; Eosinophils % (manual) 2 (0-7); Lymphocytes % (manual) 24 (10.0-50.0); Monocytes % (manual) 10 (0-12)
== END | disposition home or self-care (01) ==
LOC: LAB 10:19
PROVIDERS: ATTEND Internal Medicine
DX: E11.22 Type 2 diabetes mellitus with diabetic chronic kidney disease (principal); N18.4 Chronic kidney disease, stage 4 (severe); N40.0 Benign prostatic hyperplasia without lower urinary tract symptoms; E55.9 Vitamin D deficiency, unspecified; C91.10 Chronic lymphocytic leukemia of B-cell type not having achieved remission
CPT/HCPCS: 36415; 80053; 80061; 81001; 82043; 82306; 82570; 83036; 83540; 83550; 83935; 84153; 84156; 84300; 84443; 85007; 85027; 85045; 85049; 87086

== ENCOUNTER → 2022-07-13 | Outpatient (CLI) | payer MEDICARE, MEDICAID | END | disposition home or self-care (01) | LOC: XYW 14:30 | PROVIDERS: ATTEND Internal Medicine Nephrology | DX: I08.8 Other rheumatic multiple valve diseases (principal); R07.9 Chest pain, unspecified | CPT/HCPCS: 93306 ==

== ENCOUNTER 2022-09-05 06:32 | Inpatient (IN) | payer MEDICARE, MEDICAID ==
[~2022-09-05] VITALS: Ht 180.3 cm; Wt 84.5 kg
[2022-09-05] MEDS ORDERED: MORPHINE SULFATE INJ 2 MG/ml SYRG IV PRN ×2 (20:45)
[2022-09-05] MEDS ORDERED: DEXTROSE (50%) 50ML SYRG IV PRN (20:45)
[2022-09-05] MEDS ORDERED: NITROGLYCERIN 0.4 MG SL TAB SL PRN (20:45)
[2022-09-05] MEDS ORDERED: HYDROcodone-ACET 5/325MG TAB PO PRN (20:45)
[2022-09-05] MEDS ORDERED: ALUM & MAG HYDROX-SIMETH LIQ(MAALOX) 30 ML PO PRN (20:45)
[2022-09-05] MEDS ORDERED: ONDANSETRON HCL 4 MG/2 ML VIAL IV PRN (20:45)
[2022-09-05 21:59] LABS: Basophils # (auto) 0 10 ^3/uL (0-0.2); Basophils % (auto) 0.9 % (0.0-2.0); Eosinophils # (auto) 0.2 10 ^3/uL (0-0.8); Hemoglobin 13.7 g/dL (13.5-17.5); Lymphocytes # (auto) 1.1 10 ^3/uL (0.4-5.4); Lymphocytes % (auto) 22.7 % (10.0-50.0); Mean Corpuscular Hemoglobin 28.4 pg (28.0-32.0); Mean Corpuscular Hgb Conc. 33.4 g/dL (32.0-36.0); Mean Corpuscular Volume 85.3 fL (80.0-100.0); Monocytes # (auto) 0.6 10 ^3/uL (0-1.3); Monocytes % (auto) 11.1 % (0.0-12.0); Neutrophils # (auto) 3.1 10 ^3/uL (1.6-8.6); Neutrophils % (auto) 62.3 % (37.0-80.0); Red Blood Cells 4.81 10^6/uL (4.5-5.90); Red Cell Distribution Width 13.5 % (11.8-14.3)
[2022-09-05 22:00] VITALS: BP 145/85
[2022-09-05 22:02] LABS: Urine Bacteria FEW /hpf (None Seen); Urine Blood Negative /uL (Negative); Urine WBC <1 /hpf (0 - 3)
[2022-09-05 22:13] LABS: INR 1.03 (0.9-1.15); Partial Thromboplastin Time 28.8 sec (24.6-33.4)
[2022-09-05 22:16] LABS: Albumin 3.4 g/dL (3.4-5.0); Calcium 8.1 mg/dL (8.5-10.1); Potassium 4.7 mmol/L (3.5-5.1)
[2022-09-05 22:21] LABS: BUN/Creatinine Ratio 20.9; Bilirubin, Total 0.3 mg/dL (0.2-1.0); Total Protein 6.5 g/dL (6.4-8.2)
[2022-09-05] MEDS: ACCU-CHEK COMFORT CURVE STRIP VI SCH (23:08)
[2022-09-05] MEDS: InsuLIN REG 1unit/0.01ml Soln (100units/ml) SC SCH (23:12)
[2022-09-05] MEDS: DOCUSATE SOD 100 MG CAP PO PRN (23:33)
[2022-09-05] MEDS: TEMAZEPAM 15 MG CAP PO PRN (23:33)
[2022-09-06] VITALS (16 sets, daily range): BP systolic 115–139; BP diastolic 55–72
[2022-09-06] MEDS: SODIUM CHLOR 0.9% PF (SALINE LOCK) 10ML VIAL/SYR IV SCH ×4 (00:12→23:45)
[2022-09-06] MEDS: ACCU-CHEK COMFORT CURVE STRIP VI SCH ×4 (06:28→23:47)
[2022-09-06] MEDS ORDERED: BUPIVACAINE W/ EPINEPH 0.25% INJ 50ML MDV ONE (06:49)
[2022-09-06] MEDS ORDERED: TRANEXAMIC ACID 20 ML ONE (06:49)
[2022-09-06] MEDS ORDERED: ceFAZolin 1GM VL ONE (06:49)
[2022-09-06] MEDS ORDERED: KETOROLAC TROMETH 30 MG/ML 1ML VIAL ONE (06:51)
[2022-09-06] MEDS ORDERED: VANCOMYCIN HCL 1000 MG VL ONE (06:52)
[2022-09-06] MEDS ORDERED: InsuLIN REG 1unit/0.01ml Soln (100units/ml) SC SCH (07:00)
[2022-09-06] MEDS ORDERED: PREGABALIN CAPSULE 75 MG CAP PO ONE (07:00)
[2022-09-06] MEDS ORDERED: ceFAZolin 2 GM in D5W 5% 100 ML IV ONE (07:00)
[2022-09-06] MEDS ORDERED: MORPHINE SULF PF 5 MG/10 ML VIAL ONE ×2 (07:01→07:33)
[2022-09-06] MEDS ORDERED: ceFAZolin 1GM/50ML 50 ML IV ONE (07:01)
[2022-09-06] MEDS ORDERED: CELECOXIB 100 MG CAP ONE (07:03)
[2022-09-06] MEDS ORDERED: PREGABALIN CAPSULE 75 MG CAP ONE (07:04)
[2022-09-06] MEDS ORDERED: ACETAMINOPHEN IV 100 ML IV ONE (07:04)
[2022-09-06] MEDS ORDERED: fentaNYL CITRATE 100 MCG/2 ML VL ONE (07:31)
[2022-09-06] MEDS ORDERED: PROPOFOL 10 MG/ML 20 ML IV ONE ×2 (07:31→08:50)
[2022-09-06] MEDS ORDERED: SODIUM CHLORIDE LOCK 10 ML ONE (07:31)
[2022-09-06] MEDS ORDERED: ONDANSETRON HCL 4 MG/2 ML VIAL ONE ×2 (07:31→21:41)
[2022-09-06] MEDS ORDERED: MIDAZOLAM HCL 2MG/2ML 2ml VIAL (1mg/ml) ONE (07:31)
[2022-09-06] MEDS ORDERED: TETRACAINE 1% INJ 2 ML VIAL IJ ONE (07:34)
[2022-09-06] MEDS ORDERED: KETOROLAC TROMETH 30 MG/ML 1ML VIAL IV ONE (08:24)
[2022-09-06] MEDS ORDERED: LACTATED RINGER'S 1,000 ML IV SCH (09:30)
[2022-09-06] MEDS ORDERED: METOPROLOL TARTRATE 50 MG TAB PO SCH (10:00)
[2022-09-06] MEDS ORDERED: NALOXONE HCL 0.4 MG/ML VIAL IV PRN (10:45)
[2022-09-06] MEDS ORDERED: MORPHINE SULFATE 4 MG/ML SYR/VIAL IV PRN (10:45)
[2022-09-06] MEDS ORDERED: ACCU-CHEK COMFORT CURVE STRIP VI ONE (10:45)
[2022-09-06] MEDS ORDERED: HYDROmorphone HCL 2 MG/ML VL/or syr IV PRN ×2 (10:45)
[2022-09-06] MEDS ORDERED: ONDANSETRON HCL 4 MG/2 ML VIAL IV PRN ×2 (10:45→16:45)
[2022-09-06] MEDS ORDERED: diphenhdrAMINE HCL 50 MG/1 ML VL IV PRN (10:45)
[2022-09-06] MEDS: CHOLECALCIFEROL (VITD3) 2,000 UNIT CAP/TAB PO SCH (11:00)
[2022-09-06] MEDS ORDERED: DEXTROSE (50%) 50ML SYRG IV PRN (11:15)
[2022-09-06] MEDS: ISOSORBIDE MONONITRATE ER 60 MG TAB PO SCH (11:38)
[2022-09-06] MEDS: FINASTERIDE 5 MG TAB PO SCH (11:39)
[2022-09-06] MEDS: METOPROLOL TARTRATE 50 MG TAB PO SCH ×2 (11:40→23:46)
[2022-09-06] MEDS: InsuLIN REG 1unit/0.01ml Soln (100units/ml) SC SCH ×4 (12:22→22:00)
[2022-09-06] MEDS: ceFAZolin 1GM/50ML 50 ML IV SCH ×2 (14:39→19:27)
[2022-09-06] MEDS ORDERED: METOCLOPRAMIDE HCL 5MG/ml INJ 2ml VIAL IV PRN (16:45)
[2022-09-06] MEDS ORDERED: FAMOTIDINE (10MG/ML) 2ML VL IV ONE (16:45)
[2022-09-06] MEDS: TAMSULOSIN HYDROCHLORIDE 0.4 MG CAP PO SCH (19:28)
[2022-09-06] MEDS ORDERED: ONDANSETRON HCL 4 MG/2 ML VIAL IV ONE (21:45)
[2022-09-06] MEDS ORDERED: SODIUM CHLORIDE 0.9% 500 ML IV SCH (22:15)
[2022-09-06] MEDS ORDERED: TAMSULOSIN HYDROCHLORIDE 0.4 MG CAP PO ONE (23:00)
[2022-09-06] MEDS: ATORVASTATIN 20 MG TAB PO SCH (23:46)
[2022-09-07] VITALS (13 sets, daily range): BP systolic 92–134; BP diastolic 41–77
[2022-09-07] MEDS: ceFAZolin 1GM/50ML 50 ML IV SCH (01:05)
[2022-09-07 05:34] LABS: Basophils # (auto) 0 10 ^3/uL (0-0.2); Basophils % (auto) 0.1 % (0.0-2.0); Eosinophils # (auto) 0 10 ^3/uL (0-0.8); Hematocrit 42.5 % (41.0-53.0); Hemoglobin 14.1 g/dL (13.5-17.5); Lymphocytes # (auto) 0.4 10 ^3/uL (0.4-5.4); Lymphocytes % (auto) 3.9 % (10.0-50.0); Mean Corpuscular Hemoglobin 28.4 pg (28.0-32.0); Mean Corpuscular Hgb Conc. 33.2 g/dL (32.0-36.0); Mean Corpuscular Volume 85.6 fL (80.0-100.0); Monocytes # (auto) 0.7 10 ^3/uL (0-1.3); Monocytes % (auto) 6.6 % (0.0-12.0); Neutrophils % (auto) 89.4 % (37.0-80.0); Red Blood Cells 4.96 10^6/uL (4.5-5.90); Red Cell Distribution Width 13.6 % (11.8-14.3); White Blood Cell 11.2 10^3/uL (4.4-10.8)
[2022-09-07] MEDS: SODIUM CHLOR 0.9% PF (SALINE LOCK) 10ML VIAL/SYR IV SCH ×3 (06:41→22:41)
[2022-09-07] MEDS: ACCU-CHEK COMFORT CURVE STRIP VI SCH ×4 (06:41→22:42)
[2022-09-07] MEDS: InsuLIN REG 1unit/0.01ml Soln (100units/ml) SC SCH ×5 (06:55→22:00)
[2022-09-07] MEDS ORDERED: ENOXAPARIN SOD 30 MG/0.3 ML SYRINGE SC SCH ×2 (08:00→10:00)
[2022-09-07] MEDS ORDERED: CELECOXIB 100 MG CAP PO SCH (10:00)
[2022-09-07] MEDS: ISOSORBIDE MONONITRATE ER 60 MG TAB PO SCH (10:12)
[2022-09-07] MEDS: ASPirin 81 mg TAB PO SCH (10:12)
[2022-09-07] MEDS: CHOLECALCIFEROL (VITD3) 2,000 UNIT CAP/TAB PO SCH (10:13)
[2022-09-07] MEDS: METOPROLOL TARTRATE 50 MG TAB PO SCH ×2 (10:14→21:07)
[2022-09-07] MEDS: FINASTERIDE 5 MG TAB PO SCH (10:14)
[2022-09-07 11:02] LABS: Alanine Aminotransferase 19 U/L (16-61); Alkaline Phosphatase 98 U/L (45-117); Anion Gap 10 (5-15); Aspartate Aminotransferase 19 U/L (15-37); BUN/Creatinine Ratio 18.6; Bilirubin, Total 0.5 mg/dL (0.2-1.0); Blood Urea Nitrogen 41 mg/dL (7-18); Calcium 7.8 mg/dL (8.5-10.1); Carbon Dioxide 20 mmol/L (21-32); Chloride 107 mmol/L (98-107); GFR African American 37 mL/min; GFR Non-African American 31 mL/min; Glucose 137 mg/dL (74-106); Potassium 5.5 mmol/L (3.5-5.1); Sodium 137 mmol/L (136-145)
[2022-09-07 11:03] LABS: Albumin 2.9 g/dL (3.4-5.0); Total Protein 5.6 g/dL (6.4-8.2)
[2022-09-07 11:47] LABS: Hematocrit 39.9 % (41.0-53.0); Hemoglobin 13.3 g/dL (13.5-17.5)
[2022-09-07] MEDS ORDERED: SODIUM ZIRCONIUM CYCL 10 GM PAK PO ONE (14:45)
[2022-09-07] MEDS: TAMSULOSIN HYDROCHLORIDE 0.4 MG CAP PO SCH (18:17)
[2022-09-07] MEDS ORDERED: AMIODARONE HCL 150 MG in D5W 5% 100 ML IV ONE (21:00)
[2022-09-07] MEDS ORDERED: AMIODARONE 450mg/250ml AE 250 ML IV SCH (21:15)
[2022-09-07] MEDS: ATORVASTATIN 20 MG TAB PO SCH (22:52)
[2022-09-07 22:56] LABS: BUN/Creatinine Ratio 17.6; Calcium 7.7 mg/dL (8.5-10.1); Magnesium 2.4 mg/dL (1.6-2.6); Potassium 4.5 mmol/L (3.5-5.1)
[2022-09-08] VITALS (35 sets, daily range): BP systolic 101–166; BP diastolic 51–81
[2022-09-08] MEDS: TEMAZEPAM 15 MG CAP PO PRN (00:11)
[2022-09-08] MEDS: AMIODARONE 450mg/250ml AE 250 ML IV SCH ×2 (03:16→04:13)
[2022-09-08] MEDS: SODIUM CHLOR 0.9% PF (SALINE LOCK) 10ML VIAL/SYR IV SCH ×3 (06:00→21:10)
[2022-09-08] MEDS: InsuLIN REG 1unit/0.01ml Soln (100units/ml) SC SCH ×6 (06:54→22:00)
[2022-09-08] MEDS: ACCU-CHEK COMFORT CURVE STRIP VI SCH ×4 (06:55→21:11)
[2022-09-08] MEDS ORDERED: METOPROLOL TARTRATE 50 MG TAB PO ONE (07:30)
[2022-09-08 07:38] LABS: Basophils # (auto) 0 10 ^3/uL (0-0.2); Basophils % (auto) 0.4 % (0.0-2.0); Eosinophils # (auto) 0.1 10 ^3/uL (0-0.8); Eosinophils % (auto) 1.6 % (0.0-7.0); Hemoglobin 12.7 g/dL (13.5-17.5); Lymphocytes # (auto) 0.6 10 ^3/uL (0.4-5.4); Lymphocytes % (auto) 8.6 % (10.0-50.0); Mean Corpuscular Hemoglobin 28.4 pg (28.0-32.0); Mean Corpuscular Hgb Conc. 33.4 g/dL (32.0-36.0); Monocytes # (auto) 0.7 10 ^3/uL (0-1.3); Neutrophils # (auto) 5.5 10 ^3/uL (1.6-8.6); Neutrophils % (auto) 79.4 % (37.0-80.0); Nucleated Red Blood Cells % 0.1 %; Red Blood Cells 4.47 10^6/uL (4.5-5.90); Red Cell Distribution Width 13.5 % (11.8-14.3); White Blood Cell 6.9 10^3/uL (4.4-10.8)
[2022-09-08 07:51] LABS: Calcium 8.1 mg/dL (8.5-10.1); Potassium 4.7 mmol/L (3.5-5.1)
[2022-09-08 07:53] LABS: BUN/Creatinine Ratio 18.4
[2022-09-08] MEDS ORDERED: OPTISON 3ml Vial for INJ IV ONE ×2 (09:51→10:00)
[2022-09-08] MEDS: ISOSORBIDE MONONITRATE ER 60 MG TAB PO SCH (10:00)
[2022-09-08] MEDS: FAMOTIDINE (10MG/ML) 2ML VL IV SCH (10:19)
[2022-09-08] MEDS: CHOLECALCIFEROL (VITD3) 2,000 UNIT CAP/TAB PO SCH (10:21)
[2022-09-08] MEDS: ASPirin 81 mg TAB PO SCH (10:21)
[2022-09-08] MEDS: FINASTERIDE 5 MG TAB PO SCH (10:21)
[2022-09-08] MEDS ORDERED: DIGOXIN (250MCG/ML) 2 ML AMPULE IV ONE (11:30)
[2022-09-08] MEDS: DOCUSATE SOD 100 MG CAP PO PRN (12:27)
[2022-09-08] MEDS ORDERED: LACTULOSE 20Gm/30ML SOLN PO ONE (17:30)
[2022-09-08] MEDS: TAMSULOSIN HYDROCHLORIDE 0.4 MG CAP PO SCH (17:43)
[2022-09-08] MEDS: traMADol HCL 50 MG TAB PO PRN (17:45)
[2022-09-08] MEDS: ATORVASTATIN 20 MG TAB PO SCH (21:10)
[2022-09-08] MEDS: APIXABAN 2.5 MG TAB PO SCH (21:10)
[2022-09-08] MEDS: METOPROLOL TARTRATE 50 MG TAB PO SCH (21:11)
[2022-09-09] VITALS (33 sets, daily range): BP systolic 132–175; BP diastolic 58–88
[2022-09-09] MEDS: hydrALAZINE HCL 10 MG TAB PO PRN ×2 (02:59→14:09)
[2022-09-09] MEDS: traMADol HCL 50 MG TAB PO PRN (04:19)
[2022-09-09] MEDS: ACETAMINOPHEN 325 MG TAB PO PRN (04:23)
[2022-09-09] MEDS: SODIUM CHLOR 0.9% PF (SALINE LOCK) 10ML VIAL/SYR IV SCH ×3 (06:00→21:19)
[2022-09-09 06:15] LABS: Basophils # (auto) 0 10 ^3/uL (0-0.2); Basophils % (auto) 0.3 % (0.0-2.0); Eosinophils # (auto) 0.1 10 ^3/uL (0-0.8); Eosinophils % (auto) 1.8 % (0.0-7.0); Hemoglobin 13.1 g/dL (13.5-17.5); Lymphocytes # (auto) 0.5 10 ^3/uL (0.4-5.4); Mean Corpuscular Volume 85.2 fL (80.0-100.0); Monocytes # (auto) 0.7 10 ^3/uL (0-1.3); Neutrophils # (auto) 4.9 10 ^3/uL (1.6-8.6)
[2022-09-09] MEDS: ACCU-CHEK COMFORT CURVE STRIP VI SCH ×4 (06:16→21:19)
[2022-09-09 06:17] LABS: Hematocrit 38.5 % (41.0-53.0); Lymphocytes % (auto) 8.3 % (10.0-50.0); Mean Corpuscular Hemoglobin 29.1 pg (28.0-32.0); Mean Corpuscular Hgb Conc. 34.1 g/dL (32.0-36.0); Monocytes % (auto) 11.2 % (0.0-12.0); Neutrophils % (auto) 78.4 % (37.0-80.0); Nucleated Red Blood Cells % 0.1 %; Red Blood Cells 4.51 10^6/uL (4.5-5.90); Red Cell Distribution Width 13.2 % (11.8-14.3); White Blood Cell 6.3 10^3/uL (4.4-10.8)
[2022-09-09 06:34] LABS: Potassium 4.4 mmol/L (3.5-5.1)
[2022-09-09 06:45] LABS: BUN/Creatinine Ratio 15.5; Magnesium 2.6 mg/dL (1.6-2.6)
[2022-09-09] MEDS: InsuLIN REG 1unit/0.01ml Soln (100units/ml) SC SCH ×5 (07:00→22:00)
[2022-09-09] MEDS: LACTULOSE 20Gm/30ML SOLN PO SCH (10:00)
[2022-09-09] MEDS: AMIODARONE HCL 200 MG TAB PO SCH (10:32)
[2022-09-09] MEDS: CHOLECALCIFEROL (VITD3) 2,000 UNIT CAP/TAB PO SCH (10:32)
[2022-09-09] MEDS: APIXABAN 2.5 MG TAB PO SCH ×2 (10:33→21:19)
[2022-09-09] MEDS: METOPROLOL TARTRATE 50 MG TAB PO SCH ×3 (10:33→21:19)
[2022-09-09] MEDS: FINASTERIDE 5 MG TAB PO SCH (10:33)
[2022-09-09] MEDS ORDERED: AMIO200T33 PO (12:31)
[2022-09-09] MEDS ORDERED: APIX2.5T PO (12:31)
[2022-09-09] MEDS: TAMSULOSIN HYDROCHLORIDE 0.4 MG CAP PO SCH (17:30)
[2022-09-09] MEDS: hydrALAZINE HCL 25 MG TAB PO SCH (21:19)
[2022-09-09] MEDS: ATORVASTATIN 20 MG TAB PO SCH (21:19)
[2022-09-09] MEDS ORDERED: MELATONIN 5 MG TAB ONE (23:39)
[2022-09-09] MEDS: MELATONIN 5 MG TAB PO SCH (23:41)
[2022-09-10] VITALS (50 sets, daily range): BP systolic 85–156; BP diastolic 31–126
[2022-09-10] MEDS: ACETAMINOPHEN 325 MG TAB PO PRN ×2 (05:52→14:03)
[2022-09-10] MEDS: SODIUM CHLOR 0.9% PF (SALINE LOCK) 10ML VIAL/SYR IV SCH ×3 (05:57→21:05)
[2022-09-10] MEDS: traMADol HCL 50 MG TAB PO PRN (05:57)
[2022-09-10 06:19] LABS: Basophils # (auto) 0 10 ^3/uL (0-0.2); Basophils % (auto) 0.3 % (0.0-2.0); Eosinophils # (auto) 0.2 10 ^3/uL (0-0.8); Eosinophils % (auto) 2.6 % (0.0-7.0); Hematocrit 40.4 % (41.0-53.0); Hemoglobin 13.7 g/dL (13.5-17.5); Lymphocytes # (auto) 0.7 10 ^3/uL (0.4-5.4); Lymphocytes % (auto) 11.2 % (10.0-50.0); Mean Corpuscular Hemoglobin 28.7 pg (28.0-32.0); Mean Corpuscular Hgb Conc. 33.8 g/dL (32.0-36.0); Mean Corpuscular Volume 84.8 fL (80.0-100.0); Monocytes # (auto) 0.8 10 ^3/uL (0-1.3); Neutrophils # (auto) 4.6 10 ^3/uL (1.6-8.6); Neutrophils % (auto) 73.9 % (37.0-80.0); Red Blood Cells 4.77 10^6/uL (4.5-5.90); Red Cell Distribution Width 13.1 % (11.8-14.3); White Blood Cell 6.3 10^3/uL (4.4-10.8)
[2022-09-10] MEDS: hydrALAZINE HCL 25 MG TAB PO SCH (06:25)
[2022-09-10] MEDS: ACCU-CHEK COMFORT CURVE STRIP VI SCH ×4 (06:26→21:09)
[2022-09-10 06:31] LABS: BUN/Creatinine Ratio 14.8; Calcium 8.5 mg/dL (8.5-10.1); Potassium 4.1 mmol/L (3.5-5.1)
[2022-09-10] MEDS: InsuLIN REG 1unit/0.01ml Soln (100units/ml) SC SCH ×5 (07:31→22:00)
[2022-09-10] MEDS ORDERED: AMIODARONE 450mg/250ml AE 250 ML IV ONE (07:41)
[2022-09-10] MEDS ORDERED: ALBUMIN 25% 100 ML IV ONE ×2 (08:11→08:15)
[2022-09-10] MEDS ORDERED: AMIODARONE 450mg/250ml AE 250 ML IV SCH ×2 (08:15→14:15)
[2022-09-10] MEDS: FAMOTIDINE (10MG/ML) 2ML VL IV SCH (09:56)
[2022-09-10] MEDS: AMIODARONE HCL 200 MG TAB PO SCH (10:00)
[2022-09-10] MEDS: LACTULOSE 20Gm/30ML SOLN PO SCH (10:00)
[2022-09-10] MEDS: CHOLECALCIFEROL (VITD3) 2,000 UNIT CAP/TAB PO SCH (10:01)
[2022-09-10] MEDS: METOPROLOL TARTRATE 50 MG TAB PO SCH ×2 (10:01→21:05)
[2022-09-10] MEDS: APIXABAN 2.5 MG TAB PO SCH ×2 (10:01→21:05)
[2022-09-10] MEDS: FINASTERIDE 5 MG TAB PO SCH (10:01)
[2022-09-10] MEDS ORDERED: DIGOXIN 0.25 MG TAB PO ONE (11:00)
[2022-09-10] MEDS ORDERED: DIGOXIN (250MCG/ML) 2 ML AMPULE IV ONE (11:15)
[2022-09-10] MEDS: TAMSULOSIN HYDROCHLORIDE 0.4 MG CAP PO SCH (18:00)
[2022-09-10] MEDS: MELATONIN 5 MG TAB PO SCH (21:05)
[2022-09-10] MEDS: ATORVASTATIN 20 MG TAB PO SCH (21:05)
[2022-09-10] MEDS ORDERED: MELATONIN 5 MG TAB PO SCH (22:00)
[2022-09-11] VITALS (20 sets, daily range): BP systolic 137–174; BP diastolic 56–101
[2022-09-11] MEDS: SODIUM CHLOR 0.9% PF (SALINE LOCK) 10ML VIAL/SYR IV SCH (06:00)
[2022-09-11] MEDS: InsuLIN REG 1unit/0.01ml Soln (100units/ml) SC SCH ×2 (07:00→11:44)
[2022-09-11] MEDS: ACCU-CHEK COMFORT CURVE STRIP VI SCH ×2 (07:25→11:42)
[2022-09-11] MEDS: ACETAMINOPHEN 325 MG TAB PO PRN (07:39)
[2022-09-11 08:29] LABS: Albumin 2.9 g/dL (3.4-5.0); Potassium 4.3 mmol/L (3.5-5.1)
[2022-09-11 08:33] LABS: BUN/Creatinine Ratio 15.4; Bilirubin, Total 0.6 mg/dL (0.2-1.0); Total Protein 6.8 g/dL (6.4-8.2)
[2022-09-11 09:02] LABS: Basophils # (auto) 0 10 ^3/uL (0-0.2); Basophils % (auto) 0.5 % (0.0-2.0); Eosinophils # (auto) 0.2 10 ^3/uL (0-0.8); Eosinophils % (auto) 2.9 % (0.0-7.0); Hematocrit 42.2 % (41.0-53.0); Hemoglobin 13.9 g/dL (13.5-17.5); Lymphocytes # (auto) 0.6 10 ^3/uL (0.4-5.4); Lymphocytes % (auto) 10.8 % (10.0-50.0); Mean Corpuscular Hemoglobin 28.2 pg (28.0-32.0); Mean Corpuscular Volume 85.5 fL (80.0-100.0); Monocytes # (auto) 0.6 10 ^3/uL (0-1.3); Monocytes % (auto) 10.2 % (0.0-12.0); Neutrophils # (auto) 4.2 10 ^3/uL (1.6-8.6); Neutrophils % (auto) 75.6 % (37.0-80.0); Red Blood Cells 4.94 10^6/uL (4.5-5.90); Red Cell Distribution Width 13.1 % (11.8-14.3); White Blood Cell 5.5 10^3/uL (4.4-10.8)
[2022-09-11] MEDS: APIXABAN 2.5 MG TAB PO SCH (09:27)
[2022-09-11] MEDS: FINASTERIDE 5 MG TAB PO SCH (09:27)
[2022-09-11] MEDS: CHOLECALCIFEROL (VITD3) 2,000 UNIT CAP/TAB PO SCH (09:27)
[2022-09-11] MEDS: traMADol HCL 50 MG TAB PO PRN (09:28)
[2022-09-11] MEDS: AMIODARONE HCL 200 MG TAB PO SCH (09:28)
[2022-09-11] MEDS: METOPROLOL TARTRATE 50 MG TAB PO SCH (09:31)
[2022-09-11] MEDS: LACTULOSE 20Gm/30ML SOLN PO SCH (10:00)
== END 2022-09-11 13:30 | disposition home health service (06) | DRG 470 ==
LOC: CENTRAL 20:34 → TELE-CENTR 09-06 10:47 → DOU IN ICU 09-07 23:20 → ICU CENTRL 09-09 03:54
PROVIDERS: ADMIT Internal Medicine; ATTEND Internal Medicine
PROC: 8E0YXBZ Computer Assisted Procedure of Lower Extremity (ICD-10-PCS; 2022-09-06)
PROC: 0SRC0J9 Replacement of Right Knee Joint with Synthetic Substitute, Cemented, Open Approach (ICD-10-PCS; principal; 2022-09-06 07:32)
DX: M17.11 Unilateral primary osteoarthritis, right knee (principal); S82.091A Other fracture of right patella, initial encounter for closed fracture; C91.10 Chronic lymphocytic leukemia of B-cell type not having achieved remission; I13.0 Hypertensive heart and chronic kidney disease with heart failure and stage 1 through stage 4 chronic kidney disease, or unspecified chronic kidney disease; I50.22 Chronic systolic (congestive) heart failure; I47.20 Ventricular tachycardia, unspecified; N17.9 Acute kidney failure, unspecified; D69.6 Thrombocytopenia, unspecified; G89.29 Other chronic pain; Z20.822 Contact with and (suspected) exposure to COVID-19; X58.XXXA Exposure to other specified factors, initial encounter; I48.0 Paroxysmal atrial fibrillation; E11.22 Type 2 diabetes mellitus with diabetic chronic kidney disease; E78.5 Hyperlipidemia, unspecified; I25.10 Atherosclerotic heart disease of native coronary artery without angina pectoris; N18.30 Chronic kidney disease, stage 3 unspecified; N40.0 Benign prostatic hyperplasia without lower urinary tract symptoms; Z79.4 Long term (current) use of insulin; Z95.1 Presence of aortocoronary bypass graft; Z82.49 Family history of ischemic heart disease and other diseases of the circulatory system; Z83.3 Family history of diabetes mellitus; Z91.81 History of falling; Y93.89 Activity, other specified; Y92.89 Other specified places as the place of occurrence of the external cause; Y99.8 Other external cause status
CPT/HCPCS: 36415; 71045; 73562; 80048; 80053; 81001; 82962; 83735; 83880; 84443; 85014; 85018; 85025; 85610; 85730; 86850; 86900; 86901; 87081; 87086; 87426; 93005; 93306; 97110; 97116; 97163; 97530; G0378; J0131; J0690; J1815; J1885; J2250; J2405; J2704; J3490; J7060; P9047; Q9956

== ENCOUNTER → 2022-09-26 | Outpatient (CLI) | payer MEDICARE, MEDICAID ==
[~2022-09-26] MED LIST: AMIO200T33 PO; APIX2.5T PO
[2022-09-26 11:07] LABS: Basophils # (auto) 0 10 ^3/uL (0-0.2); Basophils % (auto) 0.6 % (0.0-2.0); Eosinophils # (auto) 0.1 10 ^3/uL (0-0.8); Eosinophils % (auto) 1.7 % (0.0-7.0); Hematocrit 38.1 % (41.0-53.0); Hemoglobin 12.3 g/dL (13.5-17.5); Lymphocytes # (auto) 0.7 10 ^3/uL (0.4-5.4); Lymphocytes % (auto) 10.7 % (10.0-50.0); Mean Corpuscular Hemoglobin 27.5 pg (28.0-32.0); Mean Corpuscular Hgb Conc. 32.2 g/dL (32.0-36.0); Mean Corpuscular Volume 85.4 fL (80.0-100.0); Monocytes # (auto) 0.8 10 ^3/uL (0-1.3); Monocytes % (auto) 10.9 % (0.0-12.0); Neutrophils # (auto) 5.3 10 ^3/uL (1.6-8.6); Neutrophils % (auto) 76.1 % (37.0-80.0); Red Blood Cells 4.46 10^6/uL (4.5-5.90); White Blood Cell 6.9 10^3/uL (4.4-10.8)
[2022-09-26 11:21] LABS: Urine Bacteria FEW /hpf (None Seen); Urine Blood Negative /uL (Negative); Urine Specific Gravity 1.011 (1.001-1.035); Urine WBC <1 /hpf (0 - 3)
[2022-09-26 11:30] LABS: Albumin 2.9 g/dL (3.4-5.0); BUN/Creatinine Ratio 17.5; Bilirubin, Total 0.4 mg/dL (0.2-1.0); CRP High Sensitivity 1.74 mg/dL (< 0.3); Calcium 8.4 mg/dL (8.5-10.1); Potassium 5.1 mmol/L (3.5-5.1); Total Protein 6.9 g/dL (6.4-8.2)
[2022-09-26 11:50] LABS: Thyroid Stimulating Hormone 1.65 uIU/mL (0.358-3.74)
[2022-09-26 12:10] LABS: Band Neutrophils % (manual) 0; Basophils % (manual) 0 (0.0-2.0); Blast Cells 0; Metamyelocytes % 0; Myelocytes % 0; Promyelocytes % 0; Reactive Lymphocytes 0
[2022-09-26 12:14] LABS: Eosinophils % (manual) 3 (0-7); Lymphocytes % (manual) 9 (10.0-50.0); Monocytes % (manual) 14 (0-12)
== END | disposition home or self-care (01) ==
LOC: LAB 10:44
PROVIDERS: ATTEND Internal Medicine
DX: E11.22 Type 2 diabetes mellitus with diabetic chronic kidney disease (principal); N18.9 Chronic kidney disease, unspecified; E55.9 Vitamin D deficiency, unspecified; R53.1 Weakness; I50.9 Heart failure, unspecified
CPT/HCPCS: 36415; 80053; 81001; 82306; 83036; 83615; 83880; 84443; 85025; 85652; 86141; 87086

== ENCOUNTER → 2022-10-01 | Outpatient (CLI) | payer OTHER, MEDICAID ==
[2022-10-03 14:14] LABS: Potassium 4.9 mmol/L (3.5-5.1)
[2022-10-03 14:15] LABS: BUN/Creatinine Ratio 17.6; Bilirubin, Total 0.5 mg/dL (0.2-1.0); Calcium 8.5 mg/dL (8.5-10.1); Total Protein 6.5 g/dL (6.4-8.2)
[2022-10-03 14:17] LABS: Lymphocytes % (auto) 13.3 % (10.0-50.0); Neutrophils % (auto) 74.7 % (37.0-80.0); White Blood Cell 5.7 10^3/uL (4.4-10.8)
[2022-10-03 14:18] LABS: Basophils # (auto) 0 10 ^3/uL (0-0.2); Basophils % (auto) 0.8 % (0.0-2.0); Eosinophils # (auto) 0.1 10 ^3/uL (0-0.8); Eosinophils % (auto) 1.6 % (0.0-7.0); Hematocrit 38.8 % (41.0-53.0); Hemoglobin 12.2 g/dL (13.5-17.5); Lymphocytes # (auto) 0.8 10 ^3/uL (0.4-5.4); Mean Corpuscular Hemoglobin 26.9 pg (28.0-32.0); Mean Corpuscular Hgb Conc. 31.6 g/dL (32.0-36.0); Mean Corpuscular Volume 85.3 fL (80.0-100.0); Monocytes # (auto) 0.6 10 ^3/uL (0-1.3); Monocytes % (auto) 9.6 % (0.0-12.0); Neutrophils # (auto) 4.3 10 ^3/uL (1.6-8.6); Red Blood Cells 4.55 10^6/uL (4.5-5.90); Red Cell Distribution Width 13.5 % (11.8-14.3)
== END | disposition home or self-care (01) ==
LOC: LAB 12:17
PROVIDERS: ATTEND Internal Medicine
DX: I10 Essential (primary) hypertension (principal)
CPT/HCPCS: 36415; 80053; 85025

== ENCOUNTER → 2022-12-16 | Outpatient (CLI) | payer MEDICARE, MEDICAID ==
[2022-12-16 10:59] LABS: Basophils # (auto) 0 10 ^3/uL (0-0.2); Basophils % (auto) 0.3 % (0.0-2.0); Eosinophils # (auto) 0.1 10 ^3/uL (0-0.8); Eosinophils % (auto) 2.2 % (0.0-7.0); Hematocrit 38.1 % (41.0-53.0); Hemoglobin 12.7 g/dL (13.5-17.5); Lymphocytes # (auto) 1.2 10 ^3/uL (0.4-5.4); Lymphocytes % (auto) 17.6 % (10.0-50.0); Mean Corpuscular Hemoglobin 28.1 pg (28.0-32.0); Mean Corpuscular Hgb Conc. 33.2 g/dL (32.0-36.0); Mean Corpuscular Volume 84.6 fL (80.0-100.0); Monocytes # (auto) 0.6 10 ^3/uL (0-1.3); Neutrophils # (auto) 4.7 10 ^3/uL (1.6-8.6); Neutrophils % (auto) 70.9 % (37.0-80.0); Nucleated Red Blood Cells % 0.1 %; Red Blood Cells 4.51 10^6/uL (4.5-5.90); Red Cell Distribution Width 14.9 % (11.8-14.3); White Blood Cell 6.6 10^3/uL (4.4-10.8)
[2022-12-16 11:23] LABS: Partial Thromboplastin Time 27.8 sec (24.6-33.4)
[2022-12-16 11:49] LABS: Calcium 8.3 mg/dL (8.5-10.1); Potassium 5.5 mmol/L (3.5-5.1)
[2022-12-16 11:51] LABS: BUN/Creatinine Ratio 15.7
== END | disposition home or self-care (01) ==
LOC: EEVIPCON → XYW 09:50
PROVIDERS: ATTEND Internal Medicine
DX: R22.43 Localized swelling, mass and lump, lower limb, bilateral (principal); I82.409 Acute embolism and thrombosis of unspecified deep veins of unspecified lower extremity
CPT/HCPCS: 36415; 73610; 80048; 83615; 84550; 85025; 85610; 85730; 93970

== ENCOUNTER → 2023-12-06 | Outpatient (CLI) | payer MEDICARE, MEDICAID ==
[~2023-12-06] MED LIST changes: +ERGO2000 PO; +FINA5TAB4 PO
[2023-12-06 12:10] LABS: Basophils # (auto) 0 10 ^3/uL (0-0.2); Basophils % (auto) 0.5 % (0.0-2.0); Eosinophils # (auto) 0.2 10 ^3/uL (0-0.8); Eosinophils % (auto) 2.3 % (0.0-7.0); Hematocrit 44.9 % (41.0-53.0); Hemoglobin 14.7 g/dL (13.5-17.5); Lymphocytes # (auto) 1.4 10 ^3/uL (0.4-5.4); Lymphocytes % (auto) 20.7 % (10.0-50.0); Mean Corpuscular Hemoglobin 28.1 pg (28.0-32.0); Mean Corpuscular Hgb Conc. 32.8 g/dL (32.0-36.0); Mean Corpuscular Volume 85.7 fL (80.0-100.0); Monocytes # (auto) 0.5 10 ^3/uL (0-1.3); Monocytes % (auto) 7.5 % (0.0-12.0); Neutrophils # (auto) 4.6 10 ^3/uL (1.6-8.6); Nucleated Red Blood Cells % 0.1 %; Red Blood Cells 5.24 10^6/uL (4.5-5.90); Red Cell Distribution Width 13.9 % (11.8-14.3); White Blood Cell 6.6 10^3/uL (4.4-10.8)
[2023-12-06 12:11] LABS: Urine Bacteria NONE SEEN /hpf (None Seen); Urine Blood Negative /uL (Negative); Urine Clarity Clear (Clear); Urine Color Colorless (Yellow); Urine Protein, UAD TRACE (Negative); Urine Urobilinogen Normal (Negative); Urine WBC <1 /hpf (0 - 3); Urine pH 5.5 (5.0-8.0)
[2023-12-06 12:29] LABS: Alanine Aminotransferase 19 U/L (7-40); Alkaline Phosphatase 110 U/L (46-116); Aspartate Aminotransferase 20 U/L (13-40); Carbon Dioxide 21 mmol/L (20-30); Chloride 110 mmol/L (98-107)
[2023-12-06 12:30] LABS: Anion Gap 8 (5-15); BUN/Creatinine Ratio 14.3 (10.0-20.0); Bilirubin, Total 0.5 mg/dL (0.2-1.0); Blood Urea Nitrogen 29 mg/dL (9-23); Glucose 97 mg/dL (74-106); Sodium 139 mmol/L (136-145)
[2023-12-06 12:31] LABS: Total Protein 7.4 g/dL (5.7-8.2)
[2023-12-06 13:15] LABS: Potassium 5.6 mmol/L (3.5-5.1)
== END | disposition home or self-care (01) ==
LOC: LAB 11:35
PROVIDERS: ATTEND Internal Medicine
DX: E11.22 Type 2 diabetes mellitus with diabetic chronic kidney disease (principal); N18.9 Chronic kidney disease, unspecified; E55.9 Vitamin D deficiency, unspecified
CPT/HCPCS: 36415; 80053; 81001; 82043; 82306; 83036; 84443; 85025

== ENCOUNTER → 2023-12-22 | Outpatient (CLI) | payer MEDICARE, MEDICAID ==
[2023-12-22 10:47] LABS: Chloride 103 mmol/L (98-107); Sodium 136 mmol/L (136-145)
[2023-12-22 10:48] LABS: Anion Gap 10 (5-15); Carbon Dioxide 23 mmol/L (20-30)
[2023-12-22 10:53] LABS: BUN/Creatinine Ratio 12.4 (10.0-20.0); Blood Urea Nitrogen 26 mg/dL (9-23); Glucose 183 mg/dL (74-106)
== END | disposition home or self-care (01) ==
LOC: LAB 08:39
PROVIDERS: ATTEND Internal Medicine
DX: I10 Essential (primary) hypertension (principal)
CPT/HCPCS: 36415; 80048

== ENCOUNTER → 2024-01-02 | Outpatient (CLI) | payer MEDICARE, MEDICAID ==
[2024-01-02 12:54] LABS: Chloride 107 mmol/L (98-107); Potassium 4.9 mmol/L (3.5-5.1); Sodium 136 mmol/L (136-145)
[2024-01-02 12:55] LABS: Anion Gap 8 (5-15); Carbon Dioxide 21 mmol/L (20-30)
[2024-01-02 12:56] LABS: Calcium 8.4 mg/dL (8.7-10.4)
[2024-01-02 13:01] LABS: Blood Urea Nitrogen 25 mg/dL (9-23); Glucose 129 mg/dL (74-106)
[2024-01-02 13:02] LABS: BUN/Creatinine Ratio 11.8 (10.0-20.0)
== END | disposition home or self-care (01) ==
LOC: LAB 09:19
PROVIDERS: ATTEND Internal Medicine
DX: E11.22 Type 2 diabetes mellitus with diabetic chronic kidney disease (principal); N18.32 Chronic kidney disease, stage 3b
CPT/HCPCS: 36415; 80048

== ENCOUNTER → 2024-07-17 | Outpatient (CLI) | payer MEDICARE, MEDICAID ==
[2024-07-17 11:21] LABS: Urine Bacteria None Seen /hpf (None Seen); Urine WBC None Seen /hpf (0 - 3)
[2024-07-17 11:45] LABS: Urine Blood Negative /uL (Negative); Urine Clarity Clear (Clear); Urine Color Colorless (Yellow); Urine Protein, UAD Negative (Negative); Urine Specific Gravity 1.006 (1.001-1.035); Urine Urobilinogen Normal (Negative); Urine pH 5.5 (5.0-9.0)
[2024-07-17 11:47] LABS: Basophils # (auto) 0 10 ^3/uL (0-0.2); Basophils % (auto) 0.5 % (0.0-2.0); Eosinophils # (auto) 0.1 10 ^3/uL (0-0.8); Hemoglobin 15.4 g/dL (13.5-17.5); Lymphocytes # (auto) 1.2 10 ^3/uL (0.4-5.4); Lymphocytes % (auto) 19.1 % (10.0-50.0); Mean Corpuscular Hemoglobin 28.8 pg (28.0-32.0); Mean Corpuscular Hgb Conc. 33.6 g/dL (32.0-36.0); Monocytes # (auto) 0.5 10 ^3/uL (0-1.3); Monocytes % (auto) 7.7 % (0.0-12.0); Neutrophils # (auto) 4.3 10 ^3/uL (1.6-8.6); Neutrophils % (auto) 70.7 % (37.0-80.0); Platelet Count (auto) 106 10^3/uL (140-450); Red Blood Cells 5.36 10^6/uL (4.5-5.90); White Blood Cell 6.1 10^3/uL (4.4-10.8)
[2024-07-17 12:00] LABS: Prostate Specific Antigen 0.49 ng/mL (0.0-4.0)
[2024-07-17 12:02] LABS: Alanine Aminotransferase 22 U/L (7-40); Albumin 4.4 g/dL (3.2-4.8); Alkaline Phosphatase 112 U/L (46-116); Anion Gap 11 (5-15); Aspartate Aminotransferase 15 U/L (13-40); Calcium 9.7 mg/dL (8.7-10.4); Carbon Dioxide 20 mmol/L (20-30); Chloride 106 mmol/L (98-107); Cholesterol 111 mg/dL (< 200); Glucose 140 mg/dL (74-106); HDL Cholesterol 36 mg/dL (40-59); LDL Cholesterol 54 mg/dL (< 100); Sodium 137 mmol/L (136-145); Triglycerides 86 mg/dL (< 150)
[2024-07-17 12:03] LABS: Bilirubin, Total 0.6 mg/dL (0.2-1.0); Total Protein 7.7 g/dL (5.7-8.2)
[2024-07-17 12:04] LABS: BUN/Creatinine Ratio 15.2 (10.0-20.0); Blood Urea Nitrogen 35 mg/dL (9-23)
[2024-07-17 12:05] LABS: Free T4 (Free Thyroxine) 1.26 ng/dL (0.89-1.76)
[2024-07-17 12:46] LABS: Potassium 5.6 mmol/L (3.5-5.1)
== END | disposition home or self-care (01) ==
LOC: LAB 10:53
PROVIDERS: ATTEND Internal Medicine
DX: E11.22 Type 2 diabetes mellitus with diabetic chronic kidney disease (principal); N18.32 Chronic kidney disease, stage 3b; Z79.899 Other long term (current) drug therapy
CPT/HCPCS: 36415; 80053; 80061; 81001; 82043; 82306; 82607; 83036; 84153; 84439; 84443; 85025

== ENCOUNTER → 2024-07-25 | Outpatient (CLI) | payer MEDICARE, MEDICAID ==
[2024-07-25 11:22] LABS: Calcium 8.8 mg/dL (8.7-10.4); Chloride 106 mmol/L (98-107); Potassium 4.9 mmol/L (3.5-5.1); Sodium 133 mmol/L (136-145)
[2024-07-25 11:23] LABS: Anion Gap 9 (5-15); Carbon Dioxide 18 mmol/L (20-30)
[2024-07-25 11:28] LABS: BUN/Creatinine Ratio 11.4 (10.0-20.0); Blood Urea Nitrogen 25 mg/dL (9-23); Glucose 219 mg/dL (74-106)
== END | disposition home or self-care (01) ==
LOC: LAB 11:11
PROVIDERS: ATTEND Internal Medicine
DX: E11.22 Type 2 diabetes mellitus with diabetic chronic kidney disease (principal); I50.22 Chronic systolic (congestive) heart failure
CPT/HCPCS: 36415; 80048

== ENCOUNTER → 2025-01-06 | Outpatient (CLI) | payer MEDICARE, MEDICAID ==
[2025-01-06 11:55] LABS: Urine Bacteria None Seen /hpf (None Seen)
[2025-01-06 12:15] LABS: Basophils # (auto) 0 10 ^3/uL (0-0.2); Basophils % (auto) 0.6 % (0.0-2.0); Eosinophils # (auto) 0.1 10 ^3/uL (0-0.8); Eosinophils % (auto) 2.3 % (0.0-7.0); Hematocrit 44.4 % (41.0-53.0); Hemoglobin 14.7 g/dL (13.5-17.5); Lymphocytes # (auto) 1.5 10 ^3/uL (0.4-5.4); Lymphocytes % (auto) 24.1 % (10.0-50.0); Mean Corpuscular Hemoglobin 28.3 pg (28.0-32.0); Mean Corpuscular Hgb Conc. 33.1 g/dL (32.0-36.0); Mean Corpuscular Volume 85.6 fL (80.0-100.0); Monocytes # (auto) 0.5 10 ^3/uL (0-1.3); Monocytes % (auto) 8.2 % (0.0-12.0); Neutrophils % (auto) 64.8 % (37.0-80.0); Nucleated Red Blood Cells % 0.1 %; Platelet Count (auto) 103 10^3/uL (140-450); Red Blood Cells 5.19 10^6/uL (4.5-5.90); Red Cell Distribution Width 14.1 % (11.8-14.3); White Blood Cell 6.2 10^3/uL (4.4-10.8)
[2025-01-06 12:41] LABS: Urine Blood Negative /uL (Negative); Urine Clarity Clear (Clear); Urine Color Colorless (Yellow); Urine Protein, UAD Negative (Negative); Urine Specific Gravity 1.008 (1.001-1.035); Urine Squamous Epithelial Cell None Seen /hpf (<5); Urine Urobilinogen Normal (Negative); Urine WBC < 1 /HPF (0-3); Urine pH 5.5 (5.0-9.0)
[2025-01-06 12:44] LABS: Prostate Specific Antigen 0.55 ng/mL (0.0-4.0)
[2025-01-06 12:47] LABS: Alanine Aminotransferase 18 U/L (7-40); Albumin 4.4 g/dL (3.2-4.8); Alkaline Phosphatase 112 U/L (46-116); Anion Gap 14 (5-15); Aspartate Aminotransferase 15 U/L (13-40); BUN/Creatinine Ratio 17.2 (10.0-20.0); Calcium 9.4 mg/dL (8.7-10.4); Chloride 104 mmol/L (98-107); Cholesterol 119 mg/dL (< 200); LDL Cholesterol 65 mg/dL (< 100); Sodium 137 mmol/L (136-145); Total Protein 7.6 g/dL (5.7-8.2); Triglycerides 98 mg/dL (< 150)
[2025-01-06 12:48] LABS: Bilirubin, Total 0.5 mg/dL (0.2-1.0); Carbon Dioxide 19 mmol/L (20-31); Potassium 5.4 mmol/L (3.5-5.1); Thyroid Stimulating Hormone 0.93 uIU/mL (0.55-4.78)
[2025-01-06 12:49] LABS: Blood Urea Nitrogen 41 mg/dL (9-23); Glucose 148 mg/dL (74-106); HDL Cholesterol 36 mg/dL (40-59)
== END | disposition home or self-care (01) ==
LOC: LAB 11:45
PROVIDERS: ATTEND Internal Medicine
DX: E11.22 Type 2 diabetes mellitus with diabetic chronic kidney disease (principal); N18.30 Chronic kidney disease, stage 3 unspecified; E55.9 Vitamin D deficiency, unspecified; R32 Unspecified urinary incontinence; Z79.899 Other long term (current) drug therapy
CPT/HCPCS: 36415; 80053; 80061; 81001; 82043; 82306; 82607; 83036; 83615; 84153; 84443; 85025

== ENCOUNTER 2025-01-29 11:21 | Day surgery (SDC) | payer MEDICARE, MEDICAID ==
[~2025-01-29] VITALS: Ht 180.3 cm; Wt 81.6 kg
[2025-01-29] MEDS ORDERED: LIDOCAINE VISCOUS 2% 15ML UD ONE (12:02)
--- NOTE | 2025-01-29 12:21 | DVH ---
INDICATION: PRE-OP EVAL TECHNIQUE: Frontal view of the chest. COMPARISON: EKG on DOS: 09/11/22, EKG on DOS: 09/10/22, CXRP on DOS: 09/07/22, CHEST PORTABLE on DOS: , CXRP on DOS: 09/06/22 FINDINGS: Median sternotomy.. The heart and mediastinal contours are grossly unremarkable. There is no evidenc e of pleural disease. The lungs are clear. The bony structures of the chest are intact without fra cture. IMPRESSION: 1. No evidence of acute disease.
[2025-01-29] MEDS ORDERED: fentaNYL CITRATE 100 MCG/2 ML VL ONE (13:13)
[2025-01-29] MEDS ORDERED: MIDAZOLAM HCL 2MG/2ML 2ml VIAL (1mg/ml) ONE (13:13)
[2025-01-29] MEDS ORDERED: DexAMETHasone SOD PHOS 10MG/1ML VIAL INJ ONE (13:33)
[2025-01-29] MEDS ORDERED: PROPOFOL 10 MG/ML 20 ML IV ONE (13:33)
[2025-01-29 13:50] VITALS: TEMP 98; O2SAT 100
--- NOTE | 2025-01-29 14:05 | DVHOP2 ---
Operative Report DATE OF OPERATION: 01/29/25 PROCEDURE: Upper Endoscopy with biopsy. PREOPERATIVE INDICATION: The patient is a 79 -year-old male undergoing endoscopy for dyspepsia and abdominal pain and GERD POSTOPERATIVE DIAGNOSES: 1. 2 cm sliding-type hiatal hernia with no significant erosive esophagitis at this time 2. Minimal gastroduodenitis ; gastric biopsies were obtained 3. Possible extrinsic compression or tortuosity of the postbulbar area of the duodenum; unable to pass the endoscope to the 2nd and 3rd part of the duodenum No clear-cut stricture seen;the 2nd part of the duodenum was well visualized and duodenal biopsies were obtained PROCEDURE PERFORMED BY: Anamika Mast GI NURSE: Inez SCOPE: Olympus videoendoscope. ASA CLASS: 3. PREOPERATIVE MEDICATIONS: Dr. Isabelle Page PROCEDURE IN DETAIL: After obtaining an informed consent, the patient was placed on left lateral decubitus position. The patient was then sedated with the above medications. A bite block was placed between his teeth. The endoscope was then passed through the oropharynx, into the esophagus, and through the stomach and pylorus up to the postbulbar area with visualization of the 2nd portion of the duodenal. Duodenal biopsies were obtained. There appeared to be possible mild extrinsic compression or tortuosity of the postbulbar area or duodenal bulb possibly related to a hernia or some adhesions I was unable to pass the endoscope freely into the 2nd and 3rd part of the duodenum at this time. The endoscope was then withdrawn. There was minimal duodenitis of the duodenal bulb and minimal gastritis. Duodenal and gastric biopsies were obtained. On retroflexion the fundus cardia and angularis were normal. The endoscope was then withdrawn into the distal esophagus. Patient had a 2 cm sliding-type hiatal hernia but no significant erosive esophagitis. The remaining distal and proximal esophagus and oropharynx were unremarkable The patient tolerated the procedure well without difficulty. COMPLICATIONS : None SPECIMENS: Duodenal biopsies Gastric biopsies DISPOSITION: Stable D/C to home PLAN: 1. Await for biopsy result 2. Will place pt on Protonix 40 mg p.o. daily or as needed 3. Lifestyle and dietary modifications for GERD 4. Consider getting abdominal ultrasound or a CT abdomen in the near future 5. Proceed with colonoscopy ANAMIKA MAST MD Jan 29, 2025 14:05
--- NOTE | 2025-01-29 14:08 | DVHOP2 ---
Operative Report DATE OF OPERATION: 01/29/25 PROCEDURE: Colonoscopy with cold biopsy polypectomy. PREOPERATIVE INDICATION: The patient is a 79 -year-old male undergoing colonoscopy for surveillance with personal history of colon polyps and history of hemorrhoids POSTOPERATIVE DIAGNOSES: 1. Patient had a 2 mm benign-appearing cecal polyp that was seen and removed completely via cold biopsy forceps 2. There were two less than 5 mm benign-appearing transverse colon polyps that were seen and removed completely via cold biopsy forceps 3. There were two less than 5 mm benign-appearing splenic flexure polyps were seen and removed completely via cold biopsy forceps 4. 1+ internal hemorrhoids with mild excoriation of the anorectum ; mild tortuosity and redundancy of the colon otherwise normal examination up to the cecum and terminal ileum PROCEDURE PERFORMED BY: Anamika Mast M.D. SCOPE: Olympus videocolonoscope. ASA CLASS: 3. PREOPERATIVE MEDICATIONS: Dr. Isabelle David PROCEDURE IN DETAIL: After obtaining an informed consent, the patient was placed on left lateral decubitus position. He was then sedated with the above medications. A rectal examination was performed that was normal. The colonoscope was then passed through the anus into the rectosigmoid and through the descending, transverse, and ascending colon up to the cecum with visualization of the appendiceal orifice, base of the cecum and the ileocec al valve. The colonoscope was then withdrawn. The distal 5 cm of the terminal ileum were normal The base of the cecum there was a 2 mm benign-appearing polyp that was seen and removed completely via cold biopsy forceps There were two less than 5 mm polyps seen in the transverse colon that were removed by cold biopsy forceps. The patient had slight melanosis coli. There were two less than 5 mm benign-appearing splenic flexure polyps that were seen and removed by cold biopsy forceps. There was no clear-cut diverticular disease. On retroflexion and straight on view the patient had 1 to 2+ internal hemorrhoids with slight excoriation. The patient tolerated the procedure well without difficulty. WITHDRAWAL TIME: 11 minutes QUALITY OF THE PREP: [place] Bowel Prep score: 9. COMPLICATIONS : None SPECIMENS: Cecal polyp x1 Transverse colon polyp x2 Splenic flexure polyps x2 DISPOSITION: Stable D/C to home PLAN: 1. Repeat colonoscopy base on biopsy result likely in 3-5 years 2. Resume GI soft diet advance as tolerated; increase fluid and fiber in his 3. Outpatient follow up with pr in 4-6 weeks to review results and discuss further management 4. Local anorectal hemorrhoidal care, tried Anusol HC rectal suppositories ANAMIKA MAST MD Jan 29, 2025 14:08
--- NOTE | 2025-01-29 14:32 | ECG ---
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
[2025-01-29 16:00] VITALS: BP 155/72; PULSE 70; RESP 12; O2SAT 94
== END 2025-01-29 16:25 | disposition home or self-care (01) ==
LOC: GI 11:21
PROVIDERS: ATTEND Internal Medicine Gastroenterology
DX: Z12.11 Encounter for screening for malignant neoplasm of colon (principal); D12.0 Benign neoplasm of cecum; D12.3 Benign neoplasm of transverse colon; K63.5 Polyp of colon; K29.50 Unspecified chronic gastritis without bleeding; K64.8 Other hemorrhoids; K21.00 Gastro-esophageal reflux disease with esophagitis, without bleeding; R10.13 Epigastric pain; K44.9 Diaphragmatic hernia without obstruction or gangrene; K29.90 Gastroduodenitis, unspecified, without bleeding; K22.10 Ulcer of esophagus without bleeding; I10 Essential (primary) hypertension; E11.9 Type 2 diabetes mellitus without complications; I49.9 Cardiac arrhythmia, unspecified; Z79.899 Other long term (current) drug therapy; Z86.0100 Personal history of colon polyps, unspecified
CPT/HCPCS: 43239; 45380; 71045; 82962; 88305; 88312; 88342; 93005; J1100; J2250; J2704; J3010; J7030; 76705

== ENCOUNTER → 2025-01-29 | Outpatient (CLI) | payer MEDICARE, MEDICAID ==
[~2025-01-29] MED LIST changes: +ASPI-498 OR; +ATOR-507 PO; +EMPA1TAB3 PO; +FERRTAB18 OR; +FIN5T PO; -FINA5TAB4 PO; +FURO1TAB33 PO; +INSU100I52 IJ; +INSU1INJ19 SC; +ISOS1TAB29 PO; +METO-159 PO; +TAMS-35 PO
[2025-01-29 11:20] LABS: Basophils # (auto) 0 10 ^3/uL (0-0.2); Basophils % (auto) 0.7 % (0.0-2.0); Eosinophils # (auto) 0.1 10 ^3/uL (0-0.8); Eosinophils % (auto) 1.5 % (0.0-7.0); Hematocrit 44.6 % (41.0-53.0); Hemoglobin 14.5 g/dL (13.5-17.5); Lymphocytes # (auto) 1.2 10 ^3/uL (0.4-5.4); Lymphocytes % (auto) 21.8 % (10.0-50.0); Mean Corpuscular Hemoglobin 27.8 pg (28.0-32.0); Mean Corpuscular Hgb Conc. 32.6 g/dL (32.0-36.0); Mean Corpuscular Volume 85.4 fL (80.0-100.0); Monocytes # (auto) 0.6 10 ^3/uL (0-1.3); Monocytes % (auto) 10.4 % (0.0-12.0); Neutrophils # (auto) 3.6 10 ^3/uL (1.6-8.6); Neutrophils % (auto) 65.6 % (37.0-80.0); Nucleated Red Blood Cells % 0.2 %; Platelet Count (auto) 91 10^3/uL (140-450); Red Blood Cells 5.22 10^6/uL (4.5-5.90); Red Cell Distribution Width 14.1 % (11.8-14.3); White Blood Cell 5.5 10^3/uL (4.4-10.8)
[2025-01-29 11:32] LABS: Chloride 106 mmol/L (98-107); Potassium 4.5 mmol/L (3.5-5.1); Sodium 143 mmol/L (136-145)
[2025-01-29 11:33] LABS: Anion Gap 13 (5-15); Calcium 9.1 mg/dL (8.7-10.4); Carbon Dioxide 24 mmol/L (20-31)
[2025-01-29 11:34] LABS: INR 0.99 (0.9-1.15); Prothrombin Time 10.5 sec (9.3-11.8)
[2025-01-29 11:38] LABS: BUN/Creatinine Ratio 15.6 (10.0-20.0)
[2025-01-29 11:39] LABS: Blood Urea Nitrogen 34 mg/dL (9-23); Glucose 155 mg/dL (74-106)
== END | disposition home or self-care (01) ==
LOC: LAB 11:05
PROVIDERS: ATTEND Internal Medicine
DX: Z01.812 Encounter for preprocedural laboratory examination (principal)
CPT/HCPCS: 36415; 80048; 85025; 85610; 86850; 86900; 86901

== ENCOUNTER 2025-06-02 11:18 | Outpatient (CLI) | payer MEDICARE, MEDICAID ==
[2025-06-02 11:42] LABS: Hematocrit 43.1 % (41.0-53.0); Hemoglobin 14.6 g/dL (13.5-17.5); Mean Corpuscular Hemoglobin 28.6 pg (28.0-32.0); Mean Corpuscular Volume 84.6 fL (80.0-100.0); Nucleated Red Blood Cells % 0.0 %
[2025-06-02 12:02] LABS: Urine Protein, UAD Negative (Negative)
[2025-06-02 12:09] LABS: Alanine Aminotransferase 18 U/L (7-40); Albumin 4.3 g/dL (3.2-4.8); Alkaline Phosphatase 101 U/L (46-116); Anion Gap 12 (5-15); BUN/Creatinine Ratio 17.0 (10.0-20.0); Calcium 9.4 mg/dL (8.7-10.4); Carbon Dioxide 20 mmol/L (20-31); Chloride 103 mmol/L (98-107); Cholesterol 114 mg/dL (< 200); Total Protein 7.0 g/dL (5.7-8.2); Triglycerides 83 mg/dL (< 150)
[2025-06-02 12:10] LABS: Bilirubin, Total 0.6 mg/dL (0.2-1.0)
[2025-06-02 12:16] LABS: Blood Urea Nitrogen 41 mg/dL (9-23); Glucose 155 mg/dL (74-106); HDL Cholesterol 36 mg/dL (40-59); Potassium 5.2 mmol/L (3.5-5.1); Sodium 135 mmol/L (136-145)
[2025-06-02 13:37] LABS: Free T4 (Free Thyroxine) 1.27 ng/dL (0.89-1.76)
== END 2025-06-02 17:00 | disposition home or self-care (01) ==
LOC: LAB 11:18
PROVIDERS: ATTEND Internal Medicine
DX: E11.22 Type 2 diabetes mellitus with diabetic chronic kidney disease (principal); I50.22 Chronic systolic (congestive) heart failure; E55.9 Vitamin D deficiency, unspecified; E53.8 Deficiency of other specified B group vitamins; N18.9 Chronic kidney disease, unspecified
CPT/HCPCS: 36415; 80053; 80061; 81001; 82043; 82607; 83036; 84439; 84443; 85025